=== PATIENT | male | born 1945 | race Caucasian/White ===

== ENCOUNTER → 2016-06-20 | Outpatient (CLI) | payer MEDICARE, OTHER ==
[2016-06-20 10:02] LABS: CH 31.7; CHCM 34.8; HCT 41.3 % (39.0-53.0); HDW 3.06; HGB 13.8 gm/dL (13.0-17.5); MCH 30.5 pg (25.0-35.0); MCHC 33.4 g/dL (31.0-37.0); MCV 91.5 fL (80.0-100.0); Mean Platelet Volume 6.4; RBC 4.52 m/uL (4.30-5.90); RDW 14.2 % (11.5-15.5); WBC 6.8 k/uL (3.8-10.6)
--- NOTE | 2016-06-20 10:08 | XR ---
EXAMINATION TYPE: XR chest 2V DATE OF EXAM: 06/20/2016 9:51 AM COMPARISON: 12/31/2013 TECHNIQUE: PA and lateral views submitted. HISTORY: Chest pain FINDINGS: The lungs are clear and there is no pneumothorax, pleural effusion, or focal pneumonia. Biapical pl eural thickening. Heart size is stable. No overt failure. Hypertrophic change of the spine. IMPRESSION: 1. No acute process.
[2016-06-20 10:17] LABS: ALT 19 U/L (21-72); AST 19 U/L (17-59); Alkaline Phosphatase 98 U/L (38-126); Anion Gap 14 mmol/L; Blood Urea Nitrogen 14 mg/dL (9-20); Calcium 9.3 mg/dL (8.4-10.2); Carbon Dioxide 22 mmol/L (22-30); Chloride 105 mmol/L (98-107); Glucose 103 mg/dL (74-99); Non-African American GFR(MDRD) >60 (>60 ml/min/1.73 sqM); Potassium 5.1 mmol/L (3.5-5.1); Sodium 141 mmol/L (137-145); Total Bilirubin 0.9 mg/dL (0.2-1.3); Total Protein 7.4 g/dL (6.3-8.2)
== END | disposition home or self-care (01) ==
LOC: LABWHC1 09:23
PROVIDERS: ATTEND Internal Medicine
DX: J44.9 Chronic obstructive pulmonary disease, unspecified (principal); C61 Malignant neoplasm of prostate; K21.0 Gastro-esophageal reflux disease with esophagitis
CPT/HCPCS: 36415; 71020; 80053; 85027

== ENCOUNTER → 2018-06-18 | Outpatient (CLI) | payer OTHER ==
--- NOTE | 2018-06-18 08:56 | US ---
EXAMINATION TYPE: US duplex aorta DATE OF EXAM: 06/18/2018 COMPARISON: NONE CLINICAL HISTORY: Z13.6 Screening for AAA Z72.0 Tobacco use. EXAM MEASUREMENTS: Abdominal Aorta: Proximal: 2.5cm by 2.5 cm. Mid: 1.7cm by 1.8 cm transversely Distal: 2.0 by 2.1 cm transversely Bifurcation: 1.2cm 1.2cm IMPRESSION: Some ectasia to the abdominal aorta without greater than 3 cm aneurysmal change identifie d.
== END | disposition home or self-care (01) ==
LOC: RADUSWWP 07:21
DX: Z13.6 Encounter for screening for cardiovascular disorders (principal); I77.811 Abdominal aortic ectasia; Z72.0 Tobacco use
CPT/HCPCS: 93979

== ENCOUNTER → 2019-11-11 | Outpatient (CLI) | payer OTHER ==
--- NOTE | 2019-11-11 14:36 | CONS ---
CONSULTATION DATE OF SERVICE: 11/11/2019 A 74-year-old gentleman who has been evaluated in the Sleep Center for possible obstructive sleep apnea-hypopnea syndrome and also significant movements of the legs and arms during the night. HISTORY OF PRESENT ILLNESS/SLEEP-WAKE EVALUATION: Patient's usual sleep schedule from 10 p.m. to 5:36 am. He does have problem with falling asleep, although no TV in bedroom. He usually sleeps on the side position. According to his , he has severe slow snoring and witnessed episodes of stopped breathing during sleep. Also patient has positive history of sleep talking, restless movements at night, banging foot, restless arms. He wakes up from sleep several times, which is various according to patient, with a dry mouth, panic attack, sweating and nocturia up to 2 times. In the morning, patient wakes up tired, has difficulties to pay attention, worry about his sleep, has problem with concentration, irritability, depression and anxiety. No history of cataplexy. During the day, patient usually does not take naps. [place] Sleepiness Scale is 1. PAST MEDICAL HISTORY: Positive for COPD, hypertension, hyperlipidemia, kidney CA, prostate CA, PTSD. PAST SURGICAL HISTORY: Right nephrectomy for CA and surgery on the prostate for CA, prostatectomy. MEDICATIONS: Prevacid, sertraline, lisinopril, Simvastatin, omeprazole, oxybutynin, sildenafil, melatonin. SOCIAL HISTORY: Positive for smoking for about 50 years, quit in 2012. Alcohol consumption occasional. PHYSICAL EXAM: gentleman without distress. BP 95/62, HR 76, RR 16, height 5, 7, weight 189, BMI 29.6, temperature 98.5, oxygen saturation at room air 98%. OROPHARYNX: Short distance between soft palate and posterior pharyngeal wall. NECK: 15 inches in circumference. LUNGS: Clear to percussion and to auscultation. Good air exchange. No wheezing or rhonchi. HEART: S1, S2 regular. No murmurs, gallops, or rubs. ABDOMEN: Soft and nontender. Bowel sounds are present. No organomegaly appreciated. EXTREMITIES: No clubbing or cyanosis. PROTOTYPE CARPENTER: Awake, alert, and oriented X3. Cranial nerves 2 to 7 intact. There is no fasciculation or atrophy. noted. No focal deficits observed. IMPRESSION: 1. Snoring, witnessed episodes of stopped breathing during the sleep, awakenings from sleep with nocturia, obstructive sleep apnea-hypopnea syndrome. 2. History of sleep talking. 3. History of movements of extremities during the night, possibly periodic limb movements. 4. History of movements of arms, possibly out of limb movements. Rule out REM sleep behavioral disorder. 5. History of PTSD. 6. Chronic obstructive pulmonary disease. 7. Hypertension. 8. Hyperlipidemia. 9. History of right kidney CA, status post right nephrectomy. 10.History of prostate carcinoma, status post prostatectomy. PLAN: 1. Polysomnography for evaluation of patient's breathing during sleep. 2. CPAP/BiPAP titration if sleep study confirms obstructive sleep apnea-hypopnea syndrome. 3. Preferable position during sleep on the side. 4. No driving if patient feels any sleepiness. 5. I will see patient for follow up visit to explain results of testing and following plan. Thank you very much for referring this patient for consultation. Sincerely, Shashi Bravo MD, PhD, FAASM Diplomat of [employer] State Archivist of [facility] [place] MMODL / VAIBHAVN: [id number] /
== END | disposition home or self-care (01) ==
LOC: SLEEP 10:56
PROVIDERS: ATTEND Internal Medicine
DX: G47.33 Obstructive sleep apnea (adult) (pediatric) (principal); J44.9 Chronic obstructive pulmonary disease, unspecified; I10 Essential (primary) hypertension; E78.5 Hyperlipidemia, unspecified; Z86.59 Personal history of other mental and behavioral disorders; Z85.528 Personal history of other malignant neoplasm of kidney; Z85.46 Personal history of malignant neoplasm of prostate; Z90.5 Acquired absence of kidney; Z90.79 Acquired absence of other genital organ(s); Z87.891 Personal history of nicotine dependence; Z79.899 Other long term (current) drug therapy
CPT/HCPCS: 99211

== ENCOUNTER → 2020-02-10 | Outpatient (CLI) | payer OTHER ==
--- NOTE | 2020-02-10 16:11 | SFUN ---
SLEEP CENTER FOLLOW UP NOTE DATE OF SERVICE: 02/10/2020 74-year-old gentleman has been followed in Sleep Center to discuss results of the sleep study and following plan. I discussed results of sleep study with the patient in detail. Diagnostic polysomnogram did not show significant respiratory abnormalities during sleep. Total apnea-hypopnea index was 3.4 per hour, which by today's criteria is normal. In REM sleep it is high as 12.9, but then it is not considered to be indication for treatment with CPAP at the present time. Lowest oxygen level was 88.5%, which is acceptable. At the same time, significant amount of leg movements have been documented in extremely high range, 101 times per hour. [place] Sleepiness Scale today is 2. Medications at present: 2 mg once a day, and 200 mg once a day. The patient does not know dosage of other medications lisinopril, melatonin, simvastatin, omeprazole, Prevacid, oxybutynin, sildenafil. PHYSICAL EXAM: Patient in no distress. BP 112/65, HR 68, RR 15, height 5 feet 7 inches, weight 190, BMI 29.7, temperature 98.2, oxygen saturation at room air 96%. Oropharynx: Short distance between soft palate and posterior pharyngeal wall. LUNGS: Clear to percussion and to auscultation. Good air exchange. No wheezing or rhonchi. NECK: Supple, no JVD. Thyroid is not palpable. HEART: S1, S2 regular. No murmurs, gallops, or rubs. ABDOMEN: Soft and nontender. Bowel sounds are present. No organomegaly appreciated. EXTREMITIES: No clubbing or cyanosis. ADULT PSYCHIATRIST: Awake, alert, and oriented X3. Cranial nerves 2 to 7 intact. There is no fasciculation or atrophy. noted. No focal deficits observed. IMPRESSION: 1. No significant respiratory abnormalities by results of polysomnogram. 2. Extremely severe periodic limb movements. 3. History of PTSD. 4. Chronic obstructive pulmonary disease. 5. Hypertension. 6. Hyperlipidemia. 7. History of right kidney CA, status post right nephrectomy. 8. History of prostate carcinoma, status post prostatectomy. PLAN: 1. I will start the patient with Mirapex 0.125 mg 1-2 tablets at bedtime for treatment of periodic limb movements. 2. The patient to sleep on the side position. 3. Watching weight. 4. Sleep hygiene with regular time for at least 7.5 to 8 hours. 5. Please check iron profile, including ferritin level. Low level of iron may increase risk for periodic limb movements. 6. No driving if feeling sleepiness. Thank you very much for allowing me to participate in management of your patient. Sincerely, Shashi Bravo MD, PhD, FAASM Diplomat of [employer] Production Machine Operator of [facility] [place] MMODL / IJN: [id number] /
== END | disposition home or self-care (01) ==
LOC: SLEEP 11:11
PROVIDERS: ATTEND Internal Medicine
DX: G47.61 Periodic limb movement disorder (principal); E78.5 Hyperlipidemia, unspecified; I10 Essential (primary) hypertension; Z85.46 Personal history of malignant neoplasm of prostate; Z85.520 Personal history of malignant carcinoid tumor of kidney; Z90.5 Acquired absence of kidney; Z90.79 Acquired absence of other genital organ(s)

== ENCOUNTER → 2020-07-11 | Outpatient (CLI) | payer OTHER, MEDICARE ==
--- NOTE | 2020-07-11 16:34 | XR ---
EXAMINATION TYPE: XR lumbar spine 2 or 3V DATE OF EXAM: 07/11/2020 CLINICAL HISTORY: Low back pain with leg weakness. TECHNIQUE: Frontal and lateral images of the lumbar spine are obtained. COMPARISON: None FINDINGS: There are 5 lumbar type vertebral bodies identified. The lumbar spine shows satisfactory alignment without evidence of acute fracture or dislocation. Vertebral body heights and disk space he ights are within normal limits. Mild multilevel anterior and lateral spurring. Facet arthropathy lowe r lumbar levels. Numerous overlying surgical clips along with mild to moderate vascular calcification overlying abdominal aorta. IMPRESSION: As above.
== END | disposition home or self-care (01) ==
LOC: RADXRMAIN 16:04
PROVIDERS: ATTEND Internal Medicine
DX: M46.06 Spinal enthesopathy, lumbar region (principal)
CPT/HCPCS: 72100

== ENCOUNTER → 2020-07-18 | Outpatient (CLI) | payer MEDICARE ==
--- NOTE | 2020-07-19 09:50 | ECHOF ---
Referral Reason:I34.0 Nonrheumatic mitral (valve) insufficiency MEASUREMENTS -------- HEIGHT: 180.3 cm WEIGHT: 79.4 kg BP: RVIDd: 2.8 cm (< 3.3) IVSd: 1.0 cm (0.6 - 1.1) LVIDd: 5.6 cm (3.9 - 5.3) LVPWd: 0.9 cm (0.6 - 1.1) IVSs: 1.9 cm LVIDs: 3.0 cm LVPWs: 1.8 cm LAESV Index (A-L): 18.17 ml/m Ao Diam: 3.4 cm (2.0 - 3.7) AV Cusp: 2.6 cm (1.5 - 2.6) LA Diam: 3.6 cm (2.7 - 3.8) MV EXCURSION: 17.007 mm (> 18.000) MV EF SLOPE: 118 mm/s (70 - 150) EPSS: 0.9 cm MV E Yony: 0.92 m/s MV DecT: 192 ms MV A Yony: 0.72 m/s MV E/A Ratio: 1.27 RAP: 5.00 mmHg RVSP: 28.63 mmHg FINDINGS -------- This was a technically good study. The left ventricular size is normal. Left ventricular wall thickness is normal. Overall left vent ricular systolic function is normal with, an EF between 55 - 60 %. The diastolic filling pattern is normal for the age of the patient 12.18. The right ventricle is normal in size. The left atrial size is normal. Normal LA size by volume 22+/-6 ml/m2. The right atrial size is normal. Interatrial and interventricular septum intact. The aortic valve is trileaflet and appears structurally normal. The mitral valve is normal. There is trace mitral regurgitation. The tricuspid valve appears structurally normal. Trace tricuspid regurgitation present. Right lon tricular systolic pressure is normal at < 35 mmHg. There is no pulmonic regurgitation present. The aortic root size is normal. Normal inferior vena cava with normal inspiratory collapse consistent with estimated right atrial pre ssure of 5 mmHg. There is no pericardial effusion. CONCLUSIONS -------- 1. The left ventricular size is normal. 2. Left ventricular wall thickness is normal. 3. Overall left ventricular systolic function is normal with, an EF between 55 - 60 %. 4. The diastolic filling pattern is normal for the age of the patient 12.18 5. There is trace mitral regurgitation. 6. Trace tricuspid regurgitation present. 7. There is no pericardial effusion. ANIMAL NURSERY WORKER: Emmy Cuevas RDCS
== END | disposition home or self-care (01) ==
LOC: RADECHMAIN 14:43
PROVIDERS: ATTEND Internal Medicine
DX: I08.1 Rheumatic disorders of both mitral and tricuspid valves (principal)
CPT/HCPCS: 93306

== ENCOUNTER → 2022-02-22 | Outpatient (CLI) | payer OTHER ==
[2022-02-22 23:03] LABS: HCT 32.9 % (39.6-50.0); HGB 10.7 g/dL (13.0-17.0); MCH 30.6 pg (27.0-32.0); MCHC 32.5 g/dL (32.0-37.0); Mean Platelet Volume 9.3 fL (9.5-12.2); NRBC Per 100 WBC 0 /100 WBCS (0.0-0.0); Platelet Count 163 X 10*3/uL (140-440); RDW 14.2 % (11.5-14.5); WBC 5.75 X 10*3/uL (4.50-10.00)
[2022-02-23 11:36] LABS: African American GFR (CKD) 50.4 (60.0-200.0); Anion Gap 10.5 mmol/L (10.00-18.00); Blood Urea Nitrogen 18.9 mg/dL (9.0-27.0); Carbon Dioxide 21.5 mmol/L (20.0-27.5); Non-African American GFR(CKD) 43.5 (60.0-200.0); Potassium 4.2 mmol/L (3.5-5.5)
== END | disposition home or self-care (01) ==
LOC: LABPAT 16:16
PROVIDERS: ATTEND Internal Medicine
DX: Z01.812 Encounter for preprocedural laboratory examination (principal); I25.10 Atherosclerotic heart disease of native coronary artery without angina pectoris
CPT/HCPCS: 80051; 82565; 84520; 85027

== ENCOUNTER 2022-02-26 07:12 | Day surgery (SDC) | payer MEDICARE, OTHER ==
[~2022-02-26 07:12] MED LIST: ALPRAZolam 0.25 MG TAB PO PRN; ALPRAZolam 0.5 MG TAB PO PRN; ASPIRIN 325 MG TAB PO ONE; ATORVASTATIN 80 MG TAB PO ONE; HEPARIN SODIUM,PORCINE 10,000 UNIT in SODIUM CHLORIDE 0.9% 1,000 ML IRRIGATION PRN; HEPARIN SODIUM,PORCINE 2,500 UNIT in SODIUM CHLORIDE 0.9% 250 ML IRRIGATION PRN; NITROGLYCERIN SL TABS 0.4 MG TAB SUBLINGUAL PRN; SODIUM CHLORIDE 0.9% 1,000 ML in EMPTY BAG 1 BAG IV SCH
[2022-02-26] MEDS ORDERED: SODIUM CHLORIDE 0.9% 1,000 ML IV ONE (07:28)
[2022-02-26 08:19] VITALS: RESP 16; TEMP 97.9
[2022-02-26] MEDS ORDERED: VERAPAMIL 2.5 MG/ML 2 ML AMP ONE (10:13)
[2022-02-26] MEDS ORDERED: fentaNYL (PF) 50 MCG/ML 2 ML AMP ONE (10:15)
[2022-02-26] MEDS ORDERED: HEPARIN SODIUM 1,000 UN/ML (10ML VL) ONE (10:16)
[2022-02-26] MEDS ORDERED: fentaNYL (PF) 50 MCG/ML 2 ML AMP IV ONE (10:24)
[2022-02-26] MEDS ORDERED: LIDOCAINE 1% INJ 10MG/ML (30 ML VIAL-PF) SQ ONE ×2 (10:24→10:31)
[2022-02-26] MEDS ORDERED: MIDAZOLAM 2 MG/2 ML VIAL IV ONE (10:24)
[2022-02-26] MEDS ORDERED: VERAPAMIL SYRINGE (5 MG/10 ML) INTRAARTER ONE (10:33)
[2022-02-26] MEDS: HEPARIN SODIUM 1,000 UN/ML (10ML VL) IV ONE ×3 (10:35→10:59)
[2022-02-26] MEDS ORDERED: TICAGRELOR 90 MG TAB PO ONE (10:43)
[2022-02-26] MEDS ORDERED: TICAGRELOR 90 MG TAB ONE (10:43)
[2022-02-26] MEDS ORDERED: IOPAMIDOL-370 100ML BTL INJ ONE ×2 (11:13)
[2022-02-26 15:51] VITALS: BP 137/79; PULSE 56
[2022-02-26] MEDS ORDERED: ATROPINE SULFATE 0.1 MG/ML 10ML SYRINGE IV PRN (17:22)
[2022-02-26] MEDS ORDERED: MAG HYDROX/AL HYDROX/SIMETH 30 ML CUP PO PRN (17:22)
[2022-02-26] MEDS ORDERED: NITROGLYCERIN SL TABS 0.4 MG TAB SUBLINGUAL PRN (17:22)
[2022-02-26] MEDS ORDERED: RX INFO: IV CONTRAST WAS GIVEN 1 EACH MISC MISCELLANE PRN (17:22)
[2022-02-26] MEDS ORDERED: ZOLPIDEM 5 MG TAB PO PRN (17:22)
[2022-02-26] MEDS ORDERED: SODIUM CHLORIDE 0.9% 1,000 ML in EMPTY BAG 1 BAG IV SCH (17:30)
--- NOTE | 2022-02-26 17:39 | P.PRCINT ---
Percutaneous Coronary Int. - Percutaneous Coronary Intervention Percutaneous Coronary Intervention: PROCEDURES PERFORMED: Left heart catheterization, bilateral coronary angiography, PCI mid to distal OM1 with 2.25 x 38mm Xience RADHA, post dilated proximally with a 3.0 NC balloon INDICATION: CAD, abnormal CT calcium score, angina class 3, CKD HISTORY: Patient is pleasant 77-year-old male with history of coronary artery calcifications who has been experiencing worsened chest pain with exertion worse over the last 2 months concerning for unstable angina. He additionally had CT calcium score > 2000. He did not have much change with metoprolol. Therefore [facility] was recommended with possible PCI. CONSENT:I have discussed the risks, benefits and alternative therapies for the above-mentioned procedure and for both sedation/analgesia as well as necessary blood product administration, if indicated, as they pertain to this patient. The patient has indicated understanding and acceptance of the risks and procedures discussed. PROCEDURE: After the risks, benefits and alternatives of the above mentioned procedure explained in detail with the patient, informed consent was obtained. Patient was taken to the catheterization lab and prepped and draped in usual fashion. 1% lidocaine was used to anesthetize the right radial artery. A 6- [place] sheath was placed in the right radial artery using modified Seldinger technique. Left coronary angiography was performed with a 5-[place] FL 3.5 catheter and right coronary angiography was performed with a 5-[place] JR5 catheter in various views. The decision was made to perform PCI of the OM1 branch. A 6Fr CLS 3.0 guide catheter was used to engage the left main. A 0.014 BMW wire was placed in the distal OM1. A second 0.014 whisper wire was used as a yeimi wire. Predilation was performed with a 2.0 then 2.25 balloon and a 3.0NC balloon proximally. Next a 2.25 x 38mm Xience RADHA was placed in the mid to distal OM1. The proximal portion was post dilated with a 3.0 NC balloon. The wire was pulled and final angiograms were performed. Preintervention there was 95% stenosis and JUDI 3 flow and post intervention there was 0% stenosis and JUDI 3 flow. The right radial sheath was removed and a TR band was placed with hemostasis achieved. The patient tolerated the procedure well. Patient was transported back to the post catheterization holding area in stable condition. Conscious Sedation: Patient was monitored under the direct supervision of vision of myself for conscious sedation using Versed and fentanyl for a total duration of 43 minutes HEMODYNAMICS: Aorta: 122/71 LV: 102/5, LVEDP 16mmHg SELECTIVE CORONARY ARTERIOGRAPHY: LEFT MAIN: The left main is a large caliber vessel which bifurcates into the LAD and circumflex. There is no significant stenosis. LEFT ANTERIOR DESCENDING CORONARY ARTERY: LAD is a large caliber vessel which wraps around to the apex. There are mild luminal irregularities and diffuse 20- 30% stenosis throughout the entire LAD. There are late collaterals to what appears to be a small caliber acute marginal branch from the RCA. LEFT CIRCUMFLEX CORONARY ARTERY: Left circumflex is a moderate to large caliber vessel with diffuse proximal 30% stenosis and a tandem 70% then 95% mid to distal OM1 stenosis and a distal circumflex 50-60% stenosis to a small caliber OM2. RIGHT CORONARY ARTERY: The right coronary artery is a large caliber vessel which gives off a PDA and PLV branch and is the dominant vessel. There are mild luminal irregularities. The proximal PDA has a 50-60% stenosis. There is a small caliber acute marginal branch with 80% stenosis. FINAL IMPRESSION: 1. CAD as described above including diffuse mild 20-30% LAD stenosis, PDA 50- 60% stenosis, circumflex 50-60% stenosis, OM1 tandem 70% and 95% stenoses. 2. S/p PCI mid to distal OM1 with 2.25 x 38mm Xience RADHA, post dilated pro ximally with a 3.0 NC balloon 3. High normal left sided filling pressures PLAN: 1. Aggressive risk factor modification per most recent ACC/AHA guidelines. 2. Continue dual antiplatelets for 12 months with aspirin and Brillinta 3. If has recurrent angina may consider functional assessment of circumflex/OM2 or PDA with iFR or stress testing.
[2022-02-26] MEDS ORDERED: TICAGRELOR 90 MG TAB PO SCH (21:00)
[2022-02-27] MEDS ORDERED: TICAGRELOR 90 MG TAB PO SCH (09:00)
[2022-02-27] MEDS ORDERED: ASPIRIN 81 MG PO SCH (09:00)
== END 2022-02-26 15:33 | disposition home or self-care (01) ==
LOC: CATHCVL 07:12
PROVIDERS: ATTEND Internal Medicine
DX: I25.110 Atherosclerotic heart disease of native coronary artery with unstable angina pectoris (principal); N18.30 Chronic kidney disease, stage 3 unspecified; Q25.0 Patent ductus arteriosus; E78.5 Hyperlipidemia, unspecified; Z98.61 Coronary angioplasty status; Z87.891 Personal history of nicotine dependence
CPT/HCPCS: 93458; C9600; C1769 ×3; C1894; C1725 ×3; C1874; J2250; J2001; J3010; J1644; Q9967

== ENCOUNTER → 2022-03-04 | Outpatient (CLI) | payer OTHER ==
--- NOTE | 2022-03-04 13:07 | US ---
EXAMINATION TYPE: US carotid duplex BILAT DATE OF EXAM: 03/04/2022 COMPARISON: NONE CLINICAL HISTORY: R93.1 abn findings. TECHNIQUE: Carotid duplex ultrasound examination. Indirect Doppler criteria was utilized. FINDINGS: EXAM MEASUREMENTS: RIGHT: Peak Systolic Velocity (PSV) cm/sec ----- Right CCA: 94.4 ----- Right ICA: 95.8 ----- Right ECA: 77.5 ICA/CCA ratio: 1.01 RIGHT: End Diastole cm/sec ----- Right CCA: 21.7 ----- Right ICA: 29.2 ----- Right ECA: 12.2 LEFT: Peak Systolic Velocity (PSV) cm/sec ----- Left CCA: 89.0 ----- Left ICA: 98.5 ----- Left ECA: 76.8 ICA/CCA ratio: 1.11 LEFT: End Diastole cm/sec ----- Left CCA: 24.5 ----- Left ICA: 27.2 ----- Left ECA: 4.1 VERTEBRALS (direction of flow): Right Vertebral: Antegrade Left Vertebral: Antegrade Rhythm: Normal CHIEF MATE NOTES: No significant stenosis seen. Bilateral plaque noted without elevated velocities. Grayscale images show moderate to severe plaque at the right carotid bulb. Less prominent plaque left carotid bulb. Velocity measurements and ratios remain within normal limits in the visualized portion of both internal carotid arteries. IMPRESSION: No hemodynamically significant stenosis identified in either internal carotid artery. Criteria for Assigning % of Stenosis / Diameter reduction (Estimation based on the indirect measurements of the internal carotid artery velocities (ICA PSV). 1. Normal (no stenosis)=ICA PSV < 125 cm/s: ratio < 2.0: ICA EDV<40 cm/s. 2. Less than 50% stenosis=ICA PSV < 125 cm/s: ratio < 2.0: ICA EDV<40 cm/s. 3. 50 to 69% stenosis=ICA PSV of 125 to 230 cm/s: ration 2.0 ? 4.0: ICA EDV 40-100 cm/s. 4. Greater than 70% stenosis to near occlusion= ICA PSV > 230 cm/s: ratio > 4.0: ICA EDV > 100 cm/s. 5. Near occlusion= ICA PSV velocities may be low or undetectable: variable ratio and ICA EDV. 6. Total occlusion=unable to detect flow.
== END | disposition home or self-care (01) ==
LOC: RADUSWWP 12:12
PROVIDERS: ATTEND Internal Medicine Clinical Cardiac Electrophysiology
DX: I25.10 Atherosclerotic heart disease of native coronary artery without angina pectoris (principal); R93.1 Abnormal findings on diagnostic imaging of heart and coronary circulation
CPT/HCPCS: 93880

== ENCOUNTER → 2022-09-17 | Outpatient (CLI) | payer OTHER | END | disposition home or self-care (01) | LOC: RADUSWWP 07:10 | DX: Z53.9 Procedure and treatment not carried out, unspecified reason (principal) ==

== ENCOUNTER → 2022-10-03 | Outpatient (CLI) | payer OTHER ==
--- NOTE | 2022-10-03 08:44 | US ---
EXAMINATION TYPE: US Aorta Screening DATE OF EXAM: 10/03/2022 COMPARISON: US CLINICAL INDICATION: Male, 77 years old with history of Z13.89 ENCOUNTER FOR SCREENING FOR OTHER DISO RDER; AAA screening TECHNIQUE: Multiple sonographic images of the abdominal aorta are obtained. FINDINGS: EXAM MEASUREMENTS: Abdominal Aorta: Proximal: 1.8 x 2.0 cm Mid: 1.3 x 1.5 cm Distal: 2.3 x 2.5 cm Bifurcation: SOFY: 1.2 x 1.2 cm SHAYY: 1.0 x 1.3 cm WEEDER THINNER NOTES: Some ectasia to the distal abdominal aorta without greater than 3 cm aneurysmal change IMPRESSION: Ectatic and atheromatous change without evidence for aneurysm.
== END | disposition home or self-care (01) ==
LOC: RADUSWWP 08:07
PROVIDERS: ATTEND Family Medicine
DX: Z13.6 Encounter for screening for cardiovascular disorders (principal); Z13.89 Encounter for screening for other disorder; I70.0 Atherosclerosis of aorta
CPT/HCPCS: 76706

== ENCOUNTER → 2022-12-17 | Outpatient (CLI) | payer MEDICARE ==
--- NOTE | 2022-12-17 13:38 | XR ---
EXAMINATION TYPE: XR tibia fibula RT DATE OF EXAM: 12/17/2022 12:30 PM INDICATION: Patient age:Male; 77 years old; Reason for study: M79.89 OTHER SPECIFIED SOFT TISSUE DISORDERS; PHH. COMPARISON: None TECHNIQUE: The right tibia/fibula was examined in AP and lateral projections. FINDINGS: No evidence of any acute osseous pathology, joint dislocation, or soft tissue swelling is n oted. No lytic or sclerotic lesion. No periosteal reaction. No radiopaque foreign body. IMPRESSION: No evidence of acute fracture.
== END | disposition home or self-care (01) ==
LOC: RADXRMAIN 12:07
PROVIDERS: ATTEND Nurse Practitioner Family
DX: M79.89 Other specified soft tissue disorders (principal)

== ENCOUNTER → 2022-12-17 | Outpatient (CLI) | payer MEDICARE ==
--- NOTE | 2022-12-17 13:29 | US ---
EXAMINATION TYPE: US venous doppler duplex LE RT DATE OF EXAM: 12/17/2022 12:54 PM COMPARISON: NONE CLINICAL INDICATION: Male, 77 years old with history of M79.89 SWELLING RIGHT LOWER EXTREMITY; SIDE PERFORMED: Right TECHNIQUE: The lower extremity deep venous system is examined utilizing real time linear array sonog brendon with graded compression, doppler sonography and color-flow sonography. VESSELS IMAGED: Common Femoral Vein Deep Femoral Vein Greater Saphenous Vein * Femoral Vein Popliteal Vein Small Saphenous Vein * Proximal Calf Veins (* superficial vessels) Right Leg: Negative for DVT Fluid visualized right upper calf medial area of lump 4.2 x 1.2 x 2.6 cm. IMPRESSION: Grayscale, color doppler, spectral doppler imaging performed of the deep veins of the lo wer extremities. There is normal flow, compressibility, vascular waveforms.
== END | disposition home or self-care (01) ==
LOC: RADUSWWP 12:11
PROVIDERS: ATTEND Internal Medicine
DX: M79.89 Other specified soft tissue disorders (principal)

== ENCOUNTER → 2023-03-31 | Outpatient (CLI) | payer MEDICARE ==
[2023-03-31 11:08] LABS: Blood Urea Nitrogen 16.6 mg/dL (9.0-27.0); Carbon Dioxide 25.1 mmol/L (21.6-31.8); Chloride 106 mmol/L (96-109); Potassium 4.7 mmol/L (3.5-5.5); Sodium 143 mmol/L (135-145)
[2023-03-31 12:19] LABS: Basophils # (A) 0.01 X 10*3/uL (0.00-0.10); Basophils % (A) 0.3 %; Eosinophils # (A) 0.14 X 10*3/uL (0.04-0.35); Eosinophils % (A) 3.8 %; HCT 32.2 % (39.6-50.0); HGB 10.7 g/dL (13.0-17.0); Immature Grans, Automated 0 %; Immature Platelet Fraction 8.5 % (1.1-6.1); Lymphocytes # (A) 0.97 X 10*3/uL (0.90-5.00); Lymphocytes % (A) 26.4 %; MCH 32.5 pg (27.0-32.0); MCHC 33.2 g/dL (32.0-37.0); MCV 97.9 FL (80.0-97.0); Mean Platelet Volume 11.6 FL (9.5-12.2); Monocytes # (A) 0.19 X 10*3/uL (0.20-1.00); Monocytes % (A) 5.2 %; NRBC Per 100 WBC 0 X 10*3/uL (0.00-0.01); Neutrophils # (A) 2.37 X 10*3/uL (1.80-7.70); Neutrophils % (A) 64.3 %; Platelet Count 71 X 10*3/uL (140-440); RBC 3.29 X 10*6/uL (4.40-5.60); RBC Morphology Normal (Normal); RDW 14.3 % (11.5-14.5); WBC 3.68 X 10*3/uL (4.50-10.00)
== END | disposition home or self-care (01) ==
LOC: LABPAT 07:18
PROVIDERS: ATTEND Internal Medicine
DX: Z01.812 Encounter for preprocedural laboratory examination (principal); I25.10 Atherosclerotic heart disease of native coronary artery without angina pectoris
CPT/HCPCS: 80051; 82565; 84520; 85025

== ENCOUNTER 2023-04-03 07:55 | Day surgery (SDC) | payer MEDICARE, OTHER ==
[~2023-04-03 07:55] MED LIST changes: -ASPIRIN 325 MG TAB PO ONE; +ASPIRIN 325 MG TAB PO STA; -ATORVASTATIN 80 MG TAB PO ONE; +HEPARIN SODIUM,PORCINE (1 ML) 2,500 UNIT in SODIUM CHLORIDE 0.9% 250 ML IRRIGATION PRN; -HEPARIN SODIUM,PORCINE 2,500 UNIT in SODIUM CHLORIDE 0.9% 250 ML IRRIGATION PRN
[2023-04-03] MEDS ORDERED: EMPTY BAG 1 BAG with SODIUM CHLORIDE 0.9% 1,000 ML IV ONE (08:00)
[2023-04-03] MEDS ORDERED: SODIUM CHLORIDE 0.9% 1,000 ML IV ONE (08:02)
[2023-04-03 08:27] LABS: Basophils % (A) 0 %; Eosinophils # (A) 0.1 k/uL (0-0.7); Eosinophils % (A) 3 %; HCT 30.9 % (39.0-53.0); HGB 10.4 gm/dL (13.0-17.5); Lymphocytes # (A) 1.1 k/uL (1.0-4.8); Lymphocytes % (A) 30 %; MCH 32.5 pg (25.0-35.0); MCHC 33.7 g/dL (31.0-37.0); MCV 96.6 fL (80.0-100.0); Mean Platelet Volume 9.6; Monocytes # (A) 0.2 k/uL (0-1.0); Monocytes % (A) 5 %; Neutrophils # (A) 2.3 k/uL (1.3-7.7); Neutrophils % (A) 61 %; RBC 3.19 m/uL (4.30-5.90); WBC 3.7 k/uL (3.8-10.6)
[2023-04-03 08:38] LABS: Platelet Count 70 k/uL (150-450)
[2023-04-03 08:46] VITALS: RESP 16; TEMP 97
[2023-04-03] MEDS ORDERED: VERAPAMIL 2.5 MG/ML 2 ML AMP ONE (10:38)
[2023-04-03] MEDS ORDERED: fentaNYL (PF) 50 MCG/ML 2 ML AMP ONE (10:48)
[2023-04-03] MEDS ORDERED: HEPARIN SODIUM 1,000 UN/ML (10ML VL) ONE (10:48)
[2023-04-03] MEDS: fentaNYL (PF) 50 MCG/ML 2 ML AMP IVP ONE ×2 (10:57→11:04)
[2023-04-03] MEDS ORDERED: MIDAZOLAM 2 MG/2 ML VIAL IVP ONE ×2 (10:57→11:05)
[2023-04-03] MEDS ORDERED: LIDOCAINE 1% INJ 10MG/ML (20 ML MDV) SQ ONE (11:00)
[2023-04-03] MEDS ORDERED: VERAPAMIL SYRINGE (5 MG/10 ML) INTRAARTER ONE (11:02)
[2023-04-03] MEDS ORDERED: HEPARIN SODIUM 1,000 UN/ML (10ML VL) IVP ONE (11:05)
[2023-04-03] MEDS ORDERED: IOPAMIDOL-370 100ML BTL INJ ONE (11:19)
[2023-04-03 14:45] VITALS: BP 99/55; PULSE 55
--- NOTE | 2023-04-03 15:50 | P.CARDCATH ---
Description of Procedure: PROCEDURES PERFORMED: Left heart catheterization, bilateral coronary angiography INDICATION: CAD CONSENT:I have discussed the risks, benefits and alternative therapies for the above-mentioned procedure and for both sedation/analgesia as well as necessary blood product administration, if indicated, as they pertain to this patient. The patient has indicated understanding and acceptance of the risks and procedures discussed. PROCEDURE: After the risks, benefits and alternatives of the above mentioned procedure explained in detail with the patient, informed consent was obtained. Patient was taken to the catheterization lab and prepped and draped in usual fashion. 1% lidocaine was used to anesthetize the right radial artery. A 6- [place] sheath was placed in the right radial artery using modified Seldinger technique. Left coronary angiography was performed with a 5-[place] FL 3.5 catheter and right coronary angiography was performed with a 5-[place] AR2 catheter in various views. The AR2 catheter was inserted into the LV and pressure measurements were obtained. Anatomy appeared unchanged from prior other than progression of the distal OM1 stenosis and therefore recommended medical therapy. The right radial sheath was removed and a TR band was placed with hemostasis achieved. The patient tolerated the procedure well. Patient was transported back to the post catheterization holding area in stable condition. Conscious Sedation: Patient was monitored under the direct supervision of vision of myself for conscious sedation using Versed and fentanyl for a total duration of 17 minutes HEMODYNAMICS: Aorta: 131/77 LV: 132/10, LVEDP 22 mmHg SELECTIVE CORONARY ARTERIOGRAPHY: LEFT MAIN: The left main is a large caliber vessel which bifurcates into the LAD and circumflex. There are nearly dual ostia. There is no significant stenosis. LEFT ANTERIOR DESCENDING CORONARY ARTERY: LAD is a large caliber vessel which wraps around to the apex. There are mild luminal irregularities and diffuse 20- 30% stenosis throughout the entire LAD. There are late collaterals to what appears to be a small caliber acute marginal branch or PLV from the RCA, similar to 2021. LEFT CIRCUMFLEX CORONARY ARTERY: Left circumflex is a moderate to large caliber vessel with diffuse proximal 30% stenosis, patent OM1 stent with distal 90% stenosis of OM1 just past the stent and a distal circumflex 60-70% stenosis to a small caliber OM2. RIGHT CORONARY ARTERY: The right coronary artery is a large caliber vessel which gives off a PDA and PLV branch and is the dominant vessel. There are mild luminal irregularities. The proximal PDA has a 50% stenosis. There is a small caliber acute marginal branch with 80% stenosis. Likely occluded PLV similar to prior with left to right collaterals. FINAL IMPRESSION: 1. CAD as described above including diffuse mild 20-30% LAD stenosis, PDA 50- 60% stenosis, circumflex 50% stenosis, small caliber OM1 90%, OM2 60-70% stenoses. 2. High left sided filling pressures PLAN: 1. Aggressive risk factor modification per most recent ACC/AHA guidelines. 2. Anatomy appears similar to prior imaging from 2021, except progression of small caliber 1.0-1.5mm OM1 and relatively similar small caliber OM2. Extensive disease and would attempt medical therapy, has not yet started Ranexa. No clear interventional targets with angina likely from smaller caliber CAD. Attempt to uptitrate antianginals.
== END 2023-04-03 15:14 | disposition home or self-care (01) ==
LOC: CATHCVL 07:55
PROVIDERS: ATTEND Internal Medicine
DX: I25.10 Atherosclerotic heart disease of native coronary artery without angina pectoris (principal); I10 Essential (primary) hypertension; E78.5 Hyperlipidemia, unspecified; Z79.899 Other long term (current) drug therapy; Z82.49 Family history of ischemic heart disease and other diseases of the circulatory system; F17.210 Nicotine dependence, cigarettes, uncomplicated; Z79.82 Long term (current) use of aspirin
CPT/HCPCS: 93458; 85025; C1769; C1894; J2250; J2001; J3010; J1644; Q9967

== ENCOUNTER 2023-06-17 06:09 | Day surgery (SDC) | payer OTHER ==
[2023-06-11 17:39] VITALS: BMI 25.2
[2023-06-17] MEDS: LACTATED RINGERS 1,000 ML IV SCH (07:00)
[2023-06-17] MEDS ORDERED: PROPOFOL 10 MG/ML 20 ML VIAL IV ONE (07:05)
[2023-06-17 07:33] VITALS: TEMP 97.7
[2023-06-17] MEDS: IV FLUID CONTINUATION 600 ML IV ONE (07:52)
[2023-06-17 08:01] LABS: Anisocytosis Slight; Basophils % (A) 1 %; Eosinophils # (A) 0.1 k/uL (0-0.7); Eosinophils % (A) 3 %; HCT 27.9 % (39.0-53.0); HGB 9.6 gm/dL (13.0-17.5); Lymphocytes # (A) 0.9 k/uL (1.0-4.8); Lymphocytes % (A) 23 %; MCH 34.3 pg (25.0-35.0); MCHC 34.6 g/dL (31.0-37.0); MCV 99.1 fL (80.0-100.0); Macrocytosis Slight; Mean Platelet Volume 12.1; Monocytes # (A) 0.2 k/uL (0-1.0); Monocytes % (A) 5 %; Neutrophils # (A) 2.6 k/uL (1.3-7.7); Neutrophils % (A) 67 %; Poikilocytosis Slight; RBC 2.82 m/uL (4.30-5.90); RDW 17.2 % (11.5-15.5); Reticulocyte % 2.8 % (0.5-2.0)
[2023-06-17 08:24] LABS: Platelet Count 58 k/uL (150-450)
[2023-06-17 08:38] VITALS: BP 106/55; PULSE 61; RESP 20
--- NOTE | 2023-06-17 09:25 | OP ---
OPERATIVE REPORT DATE OF SERVICE : PROCEDURE PERFORMED: Bone marrow biopsy with aspiration under general and local sedation. PREOPERATIVE DIAGNOSIS: Bicytopenia. POSTOPERATIVE DIAGNOSIS: Bicytopenia. DESCRIPTION OF PROCEDURE: Following administration of general anesthesia, Mr. Zabala was placed in left lateral decubitus position. The right posterior superior iliac spine was palpated followed by palpation of the right posterior iliac crest. This area was sterilized with 3 swabs of Betadine and 3 swabs of alcohol following placement of sterile drapes. The periosteum was then anesthetized with 10 mL of 1% lidocaine. A 0.3 cm incision was then made into the skin and advancement of 4-inch Jamshidi needle into the bone marrow. A total of 16 mL of aspirate was obtained followed by a 1 cm core sample. There was less than 1 mL of blood loss and procedure was tolerated without complications. Samples will be sent for morphology, flow cytometry, FISH, cytogenetics, and NGS testing. We will follow up on the results of the studies in clinic. MMODL / IJN: [id number] / MTDD
== END 2023-06-17 08:53 ==
LOC: OR 06:09
PROVIDERS: ATTEND Internal Medicine
DX: D64.89 Other specified anemias (principal)
CPT/HCPCS: 85025; 85045; 38222; J2704

== ENCOUNTER 2023-08-06 11:02 | Emergency (ER) | payer OTHER ==
--- NOTE | 2023-08-06 11:10 | ED ---
General Adult HPI - General Source: patient, family, RN notes reviewed Mode of arrival: ambulatory Limitations: no limitations <Mini Mckeon - Last Filed: 08/06/23 11:09> - General Source: patient, family, RN notes reviewed, old records reviewed Mode of arrival: ambulatory Limitations: no limitations <Sean Angel - Last Filed: 08/06/23 15:19> - General Stated complaint: Abn Labs Time Seen by Provider: 08/06/23 11:09 - History of Present Illness Initial comments: Quick note: 78-year-old male presented to the ER with a chief complaint of low hemoglobin. Patient sent by Dr. Kwon as he is currently undergoing chemo for myelodysplastic syndrome. Hemoglobin yesterday was 7 per . He has been experiencing lightheadedness. Denies any shortness of breath, chest pain or fevers. (Mini Mckeon) 78-year-old male presents emergency department with chief complaint of anemia. Patient states he was sent in by Dr. Kwon secondary to hemoglobin of 7. Patient states that he finished chemo last Friday in which he has mild dysplastic syndrome. Patient states he has had some increased dizziness and shortness of breath he states he always has the symptoms but they are worse than usual. He denies any chest pain, palpitations, fever chills or any URI symptoms. (Sean Angel) - Related Data Home Medications Medication Instructions Recorded Confirmed Aspirin 81 mg PO QAM 02/25/22 06/11/23 Atorvastatin [Lipitor] 80 mg PO HS 02/25/22 06/11/23 Ezetimibe [Zetia] 10 mg PO QAM 02/25/22 06/11/23 Melatonin 3 mg PO HS 02/25/22 06/11/23 Metoprolol Succinate (ER) [Toprol 25 mg PO QAM 02/25/22 06/11/23 Xl] Omeprazole 40 mg PO BID 02/25/22 06/11/23 Pramipexole [Mirapex] 0.125 mg PO HS 02/25/22 06/11/23 Sertraline [Zoloft] 200 mg PO DAILY 02/25/22 06/11/23 lisinopriL [Zestril] 10 mg PO QAM 02/25/22 06/11/23 traZODone HCL 100 mg PO HS 02/25/22 06/11/23 Cholecalciferol [Vitamin D3 (10 10 mg PO BID 03/31/23 06/11/23 Mcg = 400 Iu)] Clopidogrel Bisulfate [Clopidogrel] 75 mg PO QAM 03/31/23 06/11/23 Prazosin [Minipress] 2 mg PO BID 03/31/23 06/11/23 Allergies Allergy/AdvReac Type Severity Reaction Status Date / Time No Known Allergies Allergy Verified 08/06/23 11:37 Review of Systems ROS Other: All systems not noted in ROS Statement are negative. <Mini Mckeon - Last Filed: 08/06/23 11:09> ROS Other: All systems not noted in ROS Statement are negative. <Sean Angel - Last Filed: 08/06/23 15:19> ROS Statement: Those systems with pertinent positive or pertinent negative responses have been documented in the HPI. Past Medical History Past Medical History: Coronary Artery Disease (CAD), Cancer, Chest Pain / Angina, Hyperlipidemia, Hypertension, Renal Disease Additional Past Medical History / Comment(s): PAROXYSMAL ATRIAL TACHYCARDIA, HX RENAL, PROSTATE AND SKIN CNACER ALL WITH SURGERY History of Any Multi-Drug Resistant Organisms: None Reported Past Surgical History: Heart Catheterization, Heart Catheterization With Stent, Prostate Surgery Additional Past Surgical History / Comment(s): RT NEPHRECTOMY IN 1991, PROSTATECTOMY 2009, SKIN CANCER REMOVED LT ARM, LT HAND FINGERS REATTACHED, COLONOSCOPY, BILAT CATARACTS REMOVED WITH LENS IMPLANTS Past Anesthesia/Blood Transfusion Reactions: No Reported Reaction Date of Last Stent Placement:: 2021 Smoking Status: Former smoker - Past Family History Father Family Medical History: Cancer Mother Family Medical History: Cancer <Mini Mckeon - Last Filed: 08/06/23 11:09> General Exam <Mini Mckeon - Last Filed: 08/06/23 11:09> General appearance: alert, in no apparent distress Head exam: Present: atraumatic, normocephalic, normal inspection Eye exam: Present: normal appearance, PERRL, EOMI. Absent: scleral icterus, conjunctival injection, periorbital swelling ENT exam: Present: normal exam, normal oropharynx, mucous membranes moist Neck exam: Present: normal inspection, full ROM. Absent: tenderness, meningismus, lymphadenopathy Respiratory exam: Present: normal lung sounds bilaterally. Absent: respiratory distress, wheezes, rales, rhonchi, stridor Cardiovascular Exam: Present: regular rate, normal rhythm, normal heart sounds. Absent: systolic murmur, diastolic murmur, rubs, gallop, clicks GI/Abdominal exam: Present: soft, normal bowel sounds. Absent: distended, tenderness, guarding, rebound, rigid Neurological exam: Present: alert Skin exam: Present: warm, dry, intact, normal color. Absent: rash <Sean Angel - Last Filed: 08/06/23 15:19> - General Exam Comments Initial Comments: Visual Physical Exam Vital signs reviewed General: Ill-appearing mildly jaundice Head: Normocephalic, atraumatic Eyes: PERRLA, EOMI ENT: Airway patent Chest: Nonlabored breathing Skin: No visual rash, normal skin tone Neuro: Alert and oriented 3 Musculoskeletal: No gross abnormalities (Mini Mckeon) Course Vital Signs 08/06/23 11:32 Temperature 97.8 F Pulse Rate 82 Respiratory 20 Rate Blood Pressure 112/57 O2 Sat by Pulse 93 L Oximetry Medical Decision Making <Mini Mckeon - Last Filed: 08/06/23 11:09> - Lab Data Result diagrams: 08/06/23 13:20 08/06/23 13:20 <Sean Angel - Last Filed: 08/06/23 15:19> - Medical Decision Making I performed the quick note portion of this chart. Electronically signed by Mini Mckeon PA-C (Mini Mckeon) Was pt. sent in by a medical professional or institution (ERIKA Peterson, ENVIRONMENT COORDINATOR, urgent care, hospital, or group home...) When possible be specific @ -Oncologist Did you speak to anyone other than the patient for history (EMS, parent, family, police, friend...)? What history was obtained from this source @ -No Did you review nursing and triage notes (agree or disagree)? Why? @ -I reviewed and agree with nursing and triage notes Were old charts reviewed (outside hosp., previous admission, EMS record, old EKG, old radiological studies, urgent care reports/EKG's, group home records)? Report findings @ -No old charts were reviewed Differential Diagnosis (chest pain, altered mental status, abdominal pain women, abdominal pain men, vaginal bleeding, weakness, fever, dyspnea, syncope, h eadache, dizziness, GI bleed, back pain, seizure, CVA, palpatations, mental health, musculoskeletal)? @ -, MDS, anemia EKG interpreted by me (3pts min.). @ -None X-rays interpreted by me (1pt min.). @ -None done CT interpreted by me (1pt min.). @ -None done U/S interpreted by me (1pt. min.). @ -None done What testing was considered but not performed or refused? (CT, X-rays, U/S, labs)? Why? @ -None What meds were considered but not given or refused? Why? @ -None Did you discuss the management of the patient with other professionals (professionals i.e. , PA, ENVIRONMENT COORDINATOR, lab, RT, psych nurse, social psychologist, ball truing machine operator, teacher, nuclear medicine officer, family preservation caseworker)? Give summary @ -[Ceci zeng on-call for oncology recommends still transfusing and may be discharged after transfusion not requiring admission for neutropenia as he does not have a fever Was smoking cessation discussed for >3mins.? @ -No Was critical care preformed (if so, how long)? @ -35 minutes Were there social determinants of health that impacted care today? How? (Homelessness, low income, unemployed, alcoholism, drug addiction, tra nsportation, low edu. Level, literacy, decrease access to med. care, care home, rehab)? @ -No Was there de-escalation of care discussed even if they declined (Discuss DNR or withdrawal of care, Hospice)? DNR status @ -No What co-morbidities impacted this encounter? (DM, HTN, Smoking, COPD, CAD, Cancer, CVA, ARF, Chemo, Hep., AIDS, mental health diagnosis, sleep apnea, morbid obesity)? @ -None Was patient admitted / discharged? Hospital course, mention meds given and route, prescriptions, significant lab abnormalities, going to OR and other pertinent info. @ -Discharged patient did receive 1 unit of blood. Patient states he knows about his neutropenia and knows that he needs to return for any fever. I did discuss case with oncology. Patient did have a full set of laboratory studies. Undiagnosed new problem with uncertain prognosis? @ -No Drug Therapy requiring intensive monitoring for toxicity (Heparin, Nitro, Insulin, Cardizem)? @ -No Were any procedures done? @ -No Diagnosis/symptom? @ -Anemia, MDS Acute, or Chronic, or Acute on Chronic? @ -Acute Uncomplicated (without systemic symptoms) or Complicated (systemic symptoms)? @ -Complicated Side effects of treatment? @ -No Exacerbation, Progression, or Severe Exacerbation? @ -No Poses a threat to life or bodily function? How? (Chest pain, [place], [place], pneumonia, PE, COPD, DKA, ARF, appy, cholecystitis, CVA, Diverticulitis, Homicidal, S uicidal, threat to staff... and all critical care pts) @ -Yes anemia (Sean Angel) - Lab Data Lab Results 08/06/23 08/06/23 08/06/23 Range/Units 13:20 13:20 13:20 WBC 1.1 L* (3.8-10.6) k/uL RBC 2.04 L (4.30-5.90) m/uL Hgb 7.2 L D (13.0-17.5) gm/dL Hct 20.1 L (39.0-53.0) % MCV 98.9 (80.0-100.0) fL MCH 35.2 H (25.0-35.0) pg MCHC 35.6 (31.0-37.0) g/dL RDW 18.5 H (11.5-15.5) % Plt Count 33 L (150-450) k/uL MPV 12.0 Neutrophils % (Manual) 17 % Lymphocytes % (Manual) 73 % Monocytes % (Manual) 5 % Eosinophils % (Manual) 5 % Neutrophils # (Manual) 0.19 L* (1.3-7.7) k/uL Lymphocytes # (Manual) 0.80 L (1.0-4.8) k/uL Monocytes # (Manual) 0.06 (0-1.0) k/uL Eosinophils # (Manual) 0.06 (0-0.7) k/uL Nucleated RBCs 0 (0-0) /100 WBC Manual Slide Review Performed Large Platelets Present Polychromasia Present Poikilocytosis Slight Anisocytosis Slight Macrocytosis Slight PT 10.2 (10.0-12.5) sec INR 0.9 (<1.2) APTT 22.3 (22.0-30.0) sec Sodium 137 (137-145) mmol/L Potassium 4.2 (3.5-5.1) mmol/L Chloride 108 H (98-107) mmol/L Carbon Dioxide 24 (22-30) mmol/L Anion Gap 5 mmol/L BUN 17 (9-20) mg/dL Creatinine 1.31 H (0.66-1.25) mg/dL Est GFR (CKD-EPI)AfAm 61 (>60 ml/min/1.73 sqM) Est GFR (CKD-EPI)NonAf 53 (>60 ml/min/1.73 sqM) Glucose 109 H (74-99) mg/dL Calcium 8.2 L (8.4-10.2) mg/dL Total Bilirubin 0.7 (0.2-1.3) mg/dL AST 21 (17-59) U/L ALT 14 (4-49) U/L Alkaline Phosphatase 69 (38-126) U/L Total Protein 6.0 L (6.3-8.2) g/dL Albumin 3.6 (3.5-5.0) g/dL Critical Care Time Critical Care Time: Yes Total Critical Care Time: 35 <Sean Angel - Last Filed: 08/06/23 15:19> Disposition <Mini Mckeon - Last Filed: 08/06/23 11:09> Is patient prescribed a controlled substance at d/c from ED?: No Time of Disposition: 15:19 <Sean Angel - Last Filed: 08/06/23 15:19> Clinical Impression: Anemia, MDS (myelodysplastic syndrome) Disposition: HOME SELF-CARE Condition: Stable Additional Instructions: Please return to the Emergency Department if symptoms worsen or any other concerns. Referrals: Daniel Copeland MD [Primary Care Provider] - 1-2 days
[2023-08-06 13:43] LABS: ALT 14 U/L (4-49); AST 21 U/L (17-59); African American GFR (CKD) 61 (>60 ml/min/1.73 sqM); Albumin 3.6 g/dL (3.5-5.0); Alkaline Phosphatase 69 U/L (38-126); Anion Gap 5 mmol/L; Blood Urea Nitrogen 17 mg/dL (9-20); Calcium 8.2 mg/dL (8.4-10.2); Carbon Dioxide 24 mmol/L (22-30); Chloride 108 mmol/L (98-107); Glucose 109 mg/dL (74-99); Non-African American GFR(CKD) 53 (>60 ml/min/1.73 sqM); Potassium 4.2 mmol/L (3.5-5.1); Sodium 137 mmol/L (137-145); Total Bilirubin 0.7 mg/dL (0.2-1.3)
[2023-08-06 13:57] LABS: Anisocytosis Slight; HCT 20.1 % (39.0-53.0); MCH 35.2 pg (25.0-35.0); MCHC 35.6 g/dL (31.0-37.0); MCV 98.9 fL (80.0-100.0); Macrocytosis Slight; Poikilocytosis Slight; RBC 2.04 m/uL (4.30-5.90); RDW 18.5 % (11.5-15.5)
[2023-08-06 14:00] LABS: HGB 7.2 gm/dL (13.0-17.5); INR 0.9 (<1.2); Partial Thromboplastin Time 22.3 sec (22.0-30.0); Prothrombin Time 10.2 sec (10.0-12.5); WBC 1.1 k/uL (3.8-10.6)
[2023-08-06 14:49] LABS: Neutrophils % (M) 17 %
[2023-08-06 14:52] LABS: Eosinophils # (M) 0.06 k/uL (0-0.7); Large Platelets Present; Monocytes # (M) 0.06 k/uL (0-1.0); Nucleated Red Blood Cells 0 /100 WBC (0-0); Polychromasia Present; Total Cells Counted 100
[2023-08-06 14:54] LABS: Platelet Count 33 k/uL (150-450)
[2023-08-06 14:58] LABS: Neutrophils # (M) 0.19 k/uL (1.3-7.7)
[2023-08-06 18:45] VITALS: RESP 16
[2023-08-06] MEDS: ACETAMINOPHEN TAB 500 MG TAB PO STA ×2 (19:09→19:12)
[2023-08-06 21:54] VITALS: BP 135/63; PULSE 67; TEMP 98.3
== END 2023-08-06 21:28 | disposition home or self-care (01) ==
LOC: EC 11:02
DX: D46.9 Myelodysplastic syndrome, unspecified (principal); Z87.891 Personal history of nicotine dependence
CPT/HCPCS: 36415; 86900; 86901; 80053; 85025; 85610; 85730; 86850; 86920; 99284; 36430; P9016

== ENCOUNTER 2023-08-13 20:21 | Inpatient (IN) | payer OTHER, MEDICARE ==
--- NOTE | 2023-08-13 21:30 | ED ---
General Adult HPI - General Source: patient, RN notes reviewed Mode of arrival: ambulatory Limitations: no limitations <Bhumika Lyons - Last Filed: 08/13/23 21:29> <Vic Carlson - Last Filed: 08/14/23 07:40> - General Chief complaint: Fever Stated complaint: fever sore throat abd pain Time Seen by Provider: 08/13/23 21:29 - History of Present Illness Initial comments: Quick [id number] male who is immunocompromised presents with sore throat and fever x 1 day. He is also complaining of epigastric abdominal pain that he believes is due to a hernia. Denies nausea, vomiting, diarrhea (Bhumika Lyons) - Related Data Home Medications Medication Instructions Recorded Confirmed Aspirin 81 mg PO QAM 02/25/22 06/11/23 Atorvastatin [Lipitor] 80 mg PO HS 02/25/22 06/11/23 Ezetimibe [Zetia] 10 mg PO QAM 02/25/22 06/11/23 Melatonin 3 mg PO HS 02/25/22 06/11/23 Metoprolol Succinate (ER) [Toprol 25 mg PO QAM 02/25/22 06/11/23 Xl] Omeprazole 40 mg PO BID 02/25/22 06/11/23 Pramipexole [Mirapex] 0.125 mg PO HS 02/25/22 06/11/23 Sertraline [Zoloft] 200 mg PO DAILY 02/25/22 06/11/23 lisinopriL [Zestril] 10 mg PO QAM 02/25/22 06/11/23 traZODone HCL 100 mg PO HS 02/25/22 06/11/23 Cholecalciferol [Vitamin D3 (10 10 mg PO BID 03/31/23 06/11/23 Mcg = 400 Iu)] Clopidogrel Bisulfate [Clopidogrel] 75 mg PO QAM 03/31/23 06/11/23 Prazosin [Minipress] 2 mg PO BID 03/31/23 06/11/23 Allergies Allergy/AdvReac Type Severity Reaction Status Date / Time No Known Allergies Allergy Verified 08/13/23 21:04 Review of Systems ROS Other: All systems not noted in ROS Statement are negative. <Bhumika Lyons - Last Filed: 08/13/23 21:29> ROS Other: All systems not noted in ROS Statement are negative. <Vic Carlson - Last Filed: 08/14/23 07:40> ROS Statement: Those systems with pertinent positive or pertinent negative responses have been documented in the HPI. Past Medical History Past Medical History: Coronary Artery Disease (CAD), Cancer, Chest Pain / Angina, Hyperlipidemia, Hypertension, Renal Disease Additional Past Medical History / Comment(s): PAROXYSMAL ATRIAL TACHYCARDIA, HX RENAL, PROSTATE AND SKIN CNACER ALL WITH SURGERY, myelodis plastic. History of Any Multi-Drug Resistant Organisms: None Reported Past Surgical History: Heart Catheterization, Heart Catheterization With Stent, Prostate Surgery Additional Past Surgical History / Comment(s): RT NEPHRECTOMY IN 1991, PROSTATECTOMY 2009, SKIN CANCER REMOVED LT ARM, LT HAND FINGERS REATTACHED, COLONOSCOPY, BILAT CATARACTS REMOVED WITH LENS IMPLANTS Past Anesthesia/Blood Transfusion Reactions: No Reported Reaction Date of Last Stent Placement:: 2021 Past Psychological History: Anxiety, Depression, PTSD Smoking Status: Former smoker Past Alcohol Use History: None Reported Past Drug Use History: None Reported - Past Family History Father Family Medical History: Cancer Mother Family Medical History: Cancer <Bhumika Lyons - Last Filed: 08/13/23 21:29> General Exam Limitations: no limitations <Bhumika Lyons - Last Filed: 08/13/23 21:29> Limitations: no limitations General appearance: alert, in no apparent distress Head exam: Present: atraumatic, normocephalic Eye exam: Present: normal appearance, PERRL, EOMI. Absent: scleral icterus, conjunctival injection, nystagmus ENT exam: Present: mucous membranes dry Neck exam: Present: normal inspection, full ROM. Absent: tenderness, meningismus, lymphadenopathy Respiratory exam: Present: normal lung sounds bilaterally. Absent: respiratory distress, wheezes, rales, rhonchi, stridor, accessory muscle use Cardiovascular Exam: Present: regular rate, normal rhythm, normal heart sounds. Absent: systolic murmur, diastolic murmur, rubs, gallop GI/Abdominal exam: Present: soft, hernia (Patient has a ventral hernia that I was able to reduce at the bedside without difficulty.). Absent: distended, tenderness, guarding, rebound, rigid, mass Extremities exam: Present: normal inspection, normal capillary refill. Absent: pedal edema, calf tenderness Back exam: Present: normal inspection. Absent: CVA tenderness (R), CVA t enderness (L) Neurological exam: Present: alert, oriented X3 Skin exam: Present: warm, dry, intact, normal color. Absent: rash <Vic Carlson - Last Filed: 08/14/23 07:40> - General Exam Comments Initial Comments: Visual Physical Exam Vital signs reviewed General: Well-appearing, nontoxic, no acute distress. Head: Normocephalic, atraumatic Eyes: PERRLA, EOMI ENT: Airway patent Chest: Nonlabored breathing Skin: No visual rash, normal skin tone Neuro: Alert and oriented 3 Musculoskeletal: No gross abnormalities (Bhumika Lyons) Course Vital Signs 08/13/23 08/13/23 08/13/23 21:04 21:45 23:15 Temperature 100.4 F H 99.3 F 99.2 F Pulse Rate 76 73 76 Respiratory 16 18 18 Rate Blood Pressure 93/49 133/93 139/88 O2 Sat by Pulse 96 97 97 Oximetry 08/14/23 08/14/23 02:00 05:00 Temperature Pulse Rate 82 73 Respiratory 18 18 Rate Blood Pressure 113/70 117/55 O2 Sat by Pulse 93 L 95 Oximetry Medical Decision Making <Bhumika Lyons - Last Filed: 08/13/23 21:29> - Lab Data Result diagrams: 08/13/23 21:45 08/13/23 21:45 <Vic Carlson - Last Filed: 08/14/23 07:40> - Medical Decision Making I completed the quick note portion of this chart signed Bhumika Lyons PA-C (Bhumika Lyons) - Lab Data Lab Results 08/13/23 08/13/23 08/13/23 Range/Units 21:45 21:45 21:45 WBC 0.8 L* (3.8-10.6) k/uL RBC 2.42 L (4.30-5.90) m/uL Hgb 8.7 L D (13.0-17.5) gm/dL Hct 24.5 L (39.0-53.0) % MCV 101.3 H (80.0-100.0) fL MCH 36.2 H (25.0-35.0) pg MCHC 35.7 (31.0-37.0) g/dL RDW 17.9 H (11.5-15.5) % Plt Count 51 L D (150-450) k/uL MPV 11.2 Neutrophils % Not Reportable Lymphocytes % Not Reportable Monocytes % Not Reportable Eosinophils % Not Reportable Basophils % Not Reportable Neutrophils # Not Reportable Lymphocytes # Not Reportable Monocytes # Not Reportable Eosinophils # Not Reportable Basophils # Not Reportable Differential Comment Manual Slide Review Performed Hypochromasia Slight Poikilocytosis Slight Poikilocytosis (manual Present Anisocytosis Slight Anisocytosis (manual) Present Macrocytosis Moderate Sodium 138 (137-145) mmol/L Potassium 4.4 (3.5-5.1) mmol/L Chloride 107 (98-107) mmol/L Carbon Dioxide 21 L (22-30) mmol/L Anion Gap 10 mmol/L BUN 25 H (9-20) mg/dL Creatinine 1.68 H (0.66-1.25) mg/dL Est GFR (CKD-EPI)AfAm 45 (>60 ml/min/1.73 sqM) Est GFR (CKD-EPI)NonAf 39 (>60 ml/min/1.73 sqM) Glucose 113 H (74-99) mg/dL Plasma Lactic Acid Bill 0.5 L (0.7-2.0) mmol/L Calcium 8.1 L (8.4-10.2) mg/dL Total Bilirubin 0.8 (0.2-1.3) mg/dL AST 17 (17-59) U/L ALT 11 (4-49) U/L Alkaline Phosphatase 69 (38-126) U/L Total Protein 6.3 (6.3-8.2) g/dL Albumin 3.7 (3.5-5.0) g/dL Urine Color Urine Appearance (Clear) Urine pH (5.0-8.0) Ur Specific [place] (1.001-1.035) Urine Protein (Negative) Urine Glucose (UA) (Negative) Urine Ketones (Negative) Urine Blood (Negative) Urine Nitrite (Negative) Urine Bilirubin (Negative) Urine Urobilinogen (<2.0) mg/dL Ur Leukocyte Esterase (Negative) Influenza Type A (PCR) (Not Detectd) Influenza Type B (PCR) (Not Detectd) RSV (PCR) (Not Detectd) SARS-CoV-2 (PCR) (Not Detectd) Group A Strep (PCR) (Not Detectd) 08/13/23 08/13/23 08/13/23 Range/Units 21:45 21:45 22:25 WBC (3.8-10.6) k/uL RBC (4.30-5.90) m/uL Hgb (13.0-17.5) gm/dL Hct (39.0-53.0) % MCV (80.0-100.0) fL MCH (25.0-35.0) pg MCHC (31.0-37.0) g/dL RDW (11.5-15.5) % Plt Count (150-450) k/uL MPV Neutrophils % Lymphocytes % Monocytes % Eosinophils % Basophils % Neutrophils # Lymphocytes # Monocytes # Eosinophils # Basophils # Differential Comment Manual Slide Review Hypochromasia Poikilocytosis Poikilocytosis (manual Anisocytosis Anisocytosis (manual) Macrocytosis Sodium (137-145) mmol/L Potassium (3.5-5.1) mmol/L Chloride (98-107) mmol/L Carbon Dioxide (22-30) mmol/L Anion Gap mmol/L BUN (9-20) mg/dL Creatinine (0.66-1.25) mg/dL Est GFR (CKD-EPI)AfAm (>60 ml/min/1.73 sqM) Est GFR (CKD-EPI)NonAf (>60 ml/min/1.73 sqM) Glucose (74-99) mg/dL Plasma Lactic Acid Bill (0.7-2.0) mmol/L Calcium (8.4-10.2) mg/dL Total Bilirubin (0.2-1.3) mg/dL AST (17-59) U/L ALT (4-49) U/L Alkaline Phosphatase (38-126) U/L Total Protein (6.3-8.2) g/dL Albumin (3.5-5.0) g/dL Urine Color Yellow Urine Appearance Clear (Clear) Urine pH 6.5 (5.0-8.0) Ur Specific [place] 1.022 (1.001-1.035) Urine Protein Trace H (Negative) Urine Glucose (UA) Negative (Negative) Urine Ketones Negative (Negative) Urine Blood Negative (Negative) Urine Nitrite Negative (Negative) Urine Bilirubin Negative (Negative) Urine Urobilinogen 3.0 (<2.0) mg/dL Ur Leukocyte Esterase Negative (Negative) Influenza Type A (PCR) Not Detected (Not Detectd) Influenza Type B (PCR) Not Detected (Not Detectd) RSV (PCR) Not Detected (Not Detectd) SARS-CoV-2 (PCR) Not Detected (Not Detectd) Group A Strep (PCR) NOT DETECTED (Not Detectd) Disposition <Bhumika Lyons - Last Filed: 08/13/23 21:29> Is patient prescribed a controlled substance at d/c from ED?: No <Vic Carlson - Last Filed: 08/14/23 07:40> Clinical Impression: Fever, Leukocytopenia Disposition: ADMITTED IP TO THIS HOSP Condition: Serious
[2023-08-13 22:05] LABS: ALT 11 U/L (4-49); AST 17 U/L (17-59); African American GFR (CKD) 45 (>60 ml/min/1.73 sqM); Albumin 3.7 g/dL (3.5-5.0); Alkaline Phosphatase 69 U/L (38-126); Anion Gap 10 mmol/L; Blood Urea Nitrogen 25 mg/dL (9-20); Calcium 8.1 mg/dL (8.4-10.2); Carbon Dioxide 21 mmol/L (22-30); Chloride 107 mmol/L (98-107); Glucose 113 mg/dL (74-99); Non-African American GFR(CKD) 39 (>60 ml/min/1.73 sqM); Potassium 4.4 mmol/L (3.5-5.1); Sodium 138 mmol/L (137-145); Total Bilirubin 0.8 mg/dL (0.2-1.3); Total Protein 6.3 g/dL (6.3-8.2)
[2023-08-13 22:15] LABS: Anisocytosis Slight; HCT 24.5 % (39.0-53.0); Hypochromasia Slight; MCH 36.2 pg (25.0-35.0); MCHC 35.7 g/dL (31.0-37.0); MCV 101.3 fL (80.0-100.0); Macrocytosis Moderate; Mean Platelet Volume 11.2; Poikilocytosis Slight; RBC 2.42 m/uL (4.30-5.90); RDW 17.9 % (11.5-15.5)
[2023-08-13] MEDS: SODIUM CHLORIDE 0.9% 1,000 ML IV ONE (22:16)
[2023-08-13] MEDS: SODIUM CHLORIDE 0.9% 500 ML 500 ML IV STA (22:16)
[2023-08-13] MEDS: SODIUM CHLORIDE 0.9% 1,000 ML IV STA (22:16)
[2023-08-13 22:20] LABS: HGB 8.7 gm/dL (13.0-17.5); WBC 0.8 k/uL (3.8-10.6)
[2023-08-13 22:21] LABS: Platelet Count 51 k/uL (150-450)
[2023-08-13 22:47] LABS: Anisocytosis (M) Present; Poikilocytosis (M) Present
[2023-08-13 22:58] LABS: Appearance,Urine Clear (Clear); Bilirubin,Urine Negative (Negative); Blood,Urine Negative (Negative); Color,Urine Yellow; Glucose,Urine (UA) Negative (Negative); Ketones,Urine Negative (Negative); Leukocyte Esterase,Urine Negative (Negative); Nitrite,Urine Negative (Negative); PH, Urine 6.5 (5.0-8.0); Protein,Urine Trace (Negative); Specific Gravity,Urine 1.022 (1.001-1.035)
--- NOTE | 2023-08-13 23:57 | XR ---
EXAMINATION TYPE: XR chest 2V DATE OF EXAM: 08/13/2023 COMPARISON: Chest x-ray June 20, 2016 HISTORY: Fever. TECHNIQUE: Frontal and lateral views of the chest are obtained. FINDINGS: Some bilateral reticular interstitial prominence. There is no suspicious focal air space o pacity, pleural effusion, or pneumothorax seen. The cardiac silhouette size is stable and upper limi ts of normal. The osseous structures are intact. IMPRESSION: Bilateral reticular interstitial prominence favors chronic parenchymal fibrosis versus l ess likely edema. No suspicious acute pulmonary infiltrate.
[2023-08-14] MEDS: SODIUM CHLORIDE 0.9% 500 ML 500 ML IV STA (00:07)
[2023-08-14] MEDS: CEFEPIME 2 GM in SODIUM CHLORIDE 0.9% 100 ML IVPB STA (00:07)
[2023-08-14] MEDS ORDERED: NALOXONE 0.4 MG/ML 1 ML VIAL IV PRN (04:47)
[2023-08-14] MEDS: SODIUM CHLORIDE 0.9% 1,000 ML IV SCH (06:26)
[2023-08-14] MEDS: ASPIRIN 81 MG PO SCH (09:31)
[2023-08-14] MEDS: PRAZOSIN 1 MG CAP PO SCH ×2 (09:31→20:59)
[2023-08-14] MEDS: METOPROLOL SUCCINATE (ER) 25 MG TAB.ER.24H PO SCH (09:31)
[2023-08-14] MEDS: SERTRALINE 100 MG TAB PO SCH (09:31)
[2023-08-14] MEDS: CLOPIDOGREL 75 MG TAB PO SCH (09:31)
[2023-08-14] MEDS: lisinopriL 10 MG TAB PO SCH (09:31)
[2023-08-14] MEDS: PANTOPRAZOLE 40 MG TABLET PO SCH (09:31)
[2023-08-14] MEDS: EZETIMIBE 10 MG TAB PO SCH (09:31)
[2023-08-14] MEDS: CEFEPIME 2 GM in SODIUM CHLORIDE 0.9% 100 ML IVPB SCH ×2 (09:32→20:58)
[2023-08-14 13:31] LABS: Anisocytosis Slight; HCT 22.1 % (39.0-53.0); HGB 7.4 gm/dL (13.0-17.5); Hypochromasia Slight; MCH 33.9 pg (25.0-35.0); MCHC 33.3 g/dL (31.0-37.0); MCV 101.9 fL (80.0-100.0); Macrocytosis Moderate; Poikilocytosis Slight; RBC 2.17 m/uL (4.30-5.90); RDW 17.7 % (11.5-15.5)
[2023-08-14 13:56] LABS: WBC 0.7 k/uL (3.8-10.6)
[2023-08-14 13:58] LABS: ALT 10 U/L (4-49); AST 19 U/L (17-59); African American GFR (CKD) 74 (>60 ml/min/1.73 sqM); Albumin 2.9 g/dL (3.5-5.0); Albumin/Globulin Ratio 1.2; Alkaline Phosphatase 60 U/L (38-126); Anion Gap 5 mmol/L; Blood Urea Nitrogen 21 mg/dL (9-20); Calcium 7.6 mg/dL (8.4-10.2); Carbon Dioxide 20 mmol/L (22-30); Chloride 111 mmol/L (98-107); Globulin 2.4 g/dL; Glucose 110 mg/dL (74-99); Non-African American GFR(CKD) 64 (>60 ml/min/1.73 sqM); Potassium 4.1 mmol/L (3.5-5.1); Sodium 136 mmol/L (137-145); Total Bilirubin 0.6 mg/dL (0.2-1.3); Total Protein 5.3 g/dL (6.3-8.2)
[2023-08-14 14:28] LABS: Platelet Count 45 k/uL (150-450)
[2023-08-14] MEDS: SALT AND SODA MOUTHWASH 1,000 ML PO SCH (15:36)
--- NOTE | 2023-08-14 18:05 | P.HPIM ---
History of Present Illness H&P Date: 08/14/23 Chief Complaint: Febrile neutropenia HISTORY OF PRESENT ILLNESS: This is a 78-year-old male with a previous medical history significant for hypertension and hypertensive cardiovascular disease, hyperlipidemia, history of coronary artery disease status post left heart catheterization that was done recently by Dr. Hines and that showed moderate CAD with significant stenosis of the obtuse marginal branch #1 and #2 but they were small vessels it was elected for the patient to be treated medically at that time, with aggressive risk factor modifications, history of chronic kidney disease stage IIIa, enlarged prostate, patient was recently diagnosed with myelodysplasia after he was referred to Dr. 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 REVIEW OF SYSTEMS: Constitutional: positive for documented fever, no chills, positive for night sweats. positive for weight change. generalized weakness, fatigue or lethargy. No daytime sleepiness. EENT: No headache. No blurred vision or double vision, no loss of vision. hard of Hearing, no ringing in the ears, no dizziness. No nasal drainage or congestion. No epistaxis. No sore throat. Lungs: No shortness of breath, no cough, no sputum production. No wheezing. Reports dyspnea with activity. Cardiovascular: No chest pain, no lower extremity edema. No palpitations. No paroxysmal nocturnal dyspnea. No orthopnea. No lightheadedness or dizziness. No syncopal episodes. Abdominal: Reports no abdominal pain. No nausea, vomiting. No diarrhea. No constipation. No bloody or tarry stools reports loss of appetite. Genitourinary: No dysuria, increased frequency, urgency. No urinary retention. Musculoskeletal: No myalgias. No muscle weakness, no gait dysfunction, no frequent falls. No back pain. No neck pain. Integumentary: No wounds, no lesions. No rash or pruritus. No unusual bruising. No change in hair or nails. Neurologic: No aphasia. No facial droop. No change in mentation. No head injury. No headache. No paralysis. No paresthesia. Psychiatric: No depression. No anxiety. No mood swings. Endocrine: No abnormal blood sugars. No weight change. PAST MEDICAL HISTORY: Hypertension and hypertensive cardiovascular disease. Mixed hyperlipidemia. Myelodysplastic syndrome. Coronary artery disease of [place] coronary artery. Enlarged prostate. Chronic kidney disease stage IIIa. History of renal cancer status post right nephrectomy GERD. Anxiety. Obstructive sleep apnea. Detrusor instability. PAST SURGICAL HISTORY: Right nephrectomy due to renal cell carcinoma 1991 Left hand reconstructive finger surgery 1998 Prostatectomy due to prostate cancer 2009 Left arm skin cancer squamous cell carcinoma 2018 Cataract surgery Colonoscopy 03/08/2021 Left heart catheterization with PCI of the LCx obtuse marginal 1 02/26/2022 Left heart catheterization without PCI 2023. Bone marrow biopsy 06/17/2023. SOCIAL HISTORY: Patient used to smoke about a pack every day he smoked for about 50 years and quit in 2012, patient used to drink but he quit, he denies any drug use or abuse, he served in [place] and he was exposed to agent orange. FAMILY HISTORY: Father at age of 86 from lung cancer, mother at the age of 59 from lymphoma, patient has 4 sisters 1 with diabetes 1 with bicuspid aortic valve status post aortic valve replacement, patient has 1 son and 3 daughters no major medical problems. PHYSICAL EXAMINATION: General: This is a 78-year-old male laying down in bed in no apparent distress. HEENT: Head is atraumatic, normocephalic, pupils were equal round reactive to light and recommendation, extraocular muscle movement were intact, sclera nonicteric, conjunctivae were pale, mucous membranes of the mouth are somewhat dry. Neck: Supple, no JVP, normal carotid upstroke bilaterally, no lymphadenopathy. Chest: Decreased breath sounds at the bases, few rhonchi, no expiratory wheezes, no chest wall tenderness, no intercostal retractions. Heart: First heart sound is normal, second heart sound is normal there is systolic ejection murmur 2/6 located in the left sternal border. Abdomen: Soft, nontender, nondistended, positive bowel sounds. Extremities: There is no edema no calf tenderness DP +2 bilaterally. Neurologic examination: Patient is awake alert and oriented x3, cranial nerves II-12 appear grossly intact, muscle power were 5 out of 5 in upper extremities and 5 out of 5 in bilateral lower extremities, deep tendon reflexes normal bilaterally. ASSESSMENT AND PLAN: 1. Febrile neutropenia after the first cycle of azacitidine that was administered 07/21/2023 patient did receive 1 unit of packed red blood cells as an outpatient he was started on ciprofloxacin 500 mg once every day as an outpatient along with fluconazole 100 mg once every day and acyclovir 400 mg orally twice every day by his oncologist, patient was placed on neutropenic precautions and he was started on cefepime 2 g IV piggyback every 12 hours to broaden the spectrum of antibiotic, blood cultures were obtained still pending at the time of dictation, monitor the patient over the next 24 hours, if there is no more fever patient can be discharged home tomorrow morning. 2. Myelodysplastic syndrome status post bone marrow biopsy June 17, 2023. 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 Patient has been started on azacitidine by hematology oncology he was supposed to get his second treatment on August 18, 2023. 4. Coronary artery disease status post PCI of the LCx/obtuse marginal branch #1. Continue patient on aspirin 81 mg once every day, Plavix 75 mg once every day, continue atorvastatin 80 mg once every day, ezetimibe 10 mg once every day, patient has been followed by Dr. Hines. 5. Hypertension and hypertensive cardiovascular disease. Continue patient on lisinopril 10 mg once every day, metoprolol ER 25 mg orally once every day. 6. Mixed hyperlipidemia. Continue patient on atorvastatin 80 mg once every day, ezetimibe 10 mg once every day, monitor lipid panel, keep LDL 55-70. 7. GERD. Continue pantoprazole 40 mg once every day. 8. History of prostate cancer status post prostatectomy. 9. History of renal cell carcinoma status post right nephrectomy. 10. Anxiety disorder. Continue sertraline 200 mg orally once every day. 11. Insomnia continue trazodone 100 mg orally once at bedtime. 12. Chronic kidney disease stage IIIa. Monitor the patient CMP, avoid nephrotoxins, Hep-Lock IV. 13. DVT prophylaxis. Bilateral knee-high MACKENZIE hose, avoid Lovenox or heparin due to the patient thrombocytopenia. 14. GI prophylaxis. Continue patient on Protonix 40 mg once every day. 15. Admit to inpatient. Estimated length of stay 2 midnights. 16. Patient is full code. Past Medical History Past Medical History: Coronary Artery Disease (CAD), Cancer, Chest Pain / Angina, Hyperlipidemia, Hypertension, Renal Disease Additional Past Medical History / Comment(s): PAROXYSMAL ATRIAL TACHYCARDIA, HX RENAL, PROSTATE AND SKIN CANCER ALL WITH SURGERY, myelodis plastic. History of Any Multi-Drug Resistant Organisms: None Reported Past Surgical History: Heart Catheterization, Heart Catheterization With Stent, Prostate Surgery Additional Past Surgical History / Comment(s): RT NEPHRECTOMY IN 1991, PROSTATECTOMY 2009, SKIN CANCER REMOVED LT ARM, LT HAND FINGERS REATTACHED, COLONOSCOPY, BILAT CATARACTS REMOVED WITH LENS IMPLANTS Past Anesthesia/Blood Transfusion Reactions: No Reported Reaction Date of Last Stent Placement:: 2021 Past Psychological History: Anxiety, Depression, PTSD Smoking Status: Former smoker Past Alcohol Use History: None Reported Additional Past Alcohol Use History / Comment(s): QUIT SMOKING 2012. PAST HX ETOH ABUSE LAST DRANK 1988 Past Drug Use History: None Reported - Past Family History Father Family Medical History: Cancer Mother Family Medical History: Cancer Medications and Allergies Home Medications Medication Instructions Recorded Confirmed Type Aspirin 81 mg PO QAM 02/25/22 08/14/23 History Atorvastatin [Lipitor] 80 mg PO HS 02/25/22 08/14/23 History Ezetimibe [Zetia] 10 mg PO QAM 02/25/22 08/14/23 History Melatonin 3 mg PO HS 02/25/22 08/14/23 History Metoprolol Succinate (ER) [Toprol 25 mg PO QAM 02/25/22 08/14/23 History Xl] Omeprazole 20 mg PO BID 02/25/22 08/14/23 History Pramipexole [Mirapex] 0.125 mg PO HS 02/25/22 08/14/23 History Sertraline [Zoloft] 200 mg PO DAILY 02/25/22 08/14/23 History lisinopriL [Zestril] 10 mg PO QAM 02/25/22 08/14/23 History traZODone HCL 100 mg PO HS 02/25/22 08/14/23 History Cholecalciferol [Vitamin D3 (10 10 mg PO DAILY 03/31/23 08/14/23 History Mcg = 400 Iu)] Clopidogrel Bisulfate [Clopidogrel] 75 mg PO QAM 03/31/23 08/14/23 History Prazosin HCl 2 mg PO HS 08/14/23 08/14/23 History Allergies Allergy/AdvReac Type Severity Reaction Status Date / Time No Known Allergies Allergy Verified 08/14/23 11:49 Physical Exam Vitals: Vital Signs Temp Pulse Pulse Resp BP BP Pulse Ox 08/14/23 07:44 98.8 F 74 20 144/68 96 08/14/23 06:27 98.6 F 74 16 132/53 97 08/14/23 05:00 73 18 117/55 95 08/14/23 02:00 82 18 113/70 93 L 08/13/23 23:15 99.2 F 76 18 139/88 97 08/13/23 21:45 99.3 F 73 18 133/93 97 08/13/23 21:04 100.4 F H 76 16 93/49 96 Intake and Output 08/13/23 08/14/23 08/14/23 22:59 06:59 14:59 Other: Weight 79.379 kg 79.379 kg Results CBC & Chem 7: 08/15/23 07:03 08/14/23 13:19 Labs: Abnormal Lab Results - Last 24 Hours (Table) 08/13/23 08/13/23 08/13/23 Range/Units 21:45 21:45 21:45 WBC 0.8 L* (3.8-10.6) k/uL RBC 2.42 L (4.30-5.90) m/uL Hgb 8.7 L D (13.0-17.5) gm/dL Hct 24.5 L (39.0-53.0) % MCV 101.3 H (80.0-100.0) fL MCH 36.2 H (25.0-35.0) pg RDW 17.9 H (11.5-15.5) % Plt Count 51 L D (150-450) k/uL Carbon Dioxide 21 L (22-30) mmol/L BUN 25 H (9-20) mg/dL Creatinine 1.68 H (0.66-1.25) mg/dL Glucose 113 H (74-99) mg/dL Plasma Lactic Acid Bill 0.5 L (0.7-2.0) mmol/L Calcium 8.1 L (8.4-10.2) mg/dL Urine Protein (Negative) 08/13/23 Range/Units 22:25 WBC (3.8-10.6) k/uL RBC (4.30-5.90) m/uL Hgb (13.0-17.5) gm/dL Hct (39.0-53.0) % MCV (80.0-100.0) fL MCH (25.0-35.0) pg RDW (11.5-15.5) % Plt Count (150-450) k/uL Carbon Dioxide (22-30) mmol/L BUN (9-20) mg/dL Creatinine (0.66-1.25) mg/dL Glucose (74-99) mg/dL Plasma Lactic Acid Bill (0.7-2.0) mmol/L Calcium (8.4-10.2) mg/dL Urine Protein Trace H (Negative) Thrombosis Risk Factor Assmnt - Choose All That Apply Other Risk Factors: Yes Each Risk Factor Represents 3 Points: Age 75 years or older Thrombosis Risk Factor Assessment Total Risk Factor Score: 3 Thrombosis Risk Factor Assessment Level: Moderate Risk
[2023-08-14] MEDS: ATORVASTATIN 80 MG TAB PO SCH (20:58)
[2023-08-14] MEDS: traZODone HCL 100 MG TAB PO SCH (20:58)
[2023-08-14] MEDS: MELATONIN 3 MG TABLET PO SCH (20:58)
[2023-08-14] MEDS ORDERED: PRAZOSIN 1 MG CAP PO SCH (21:00)
[2023-08-14] MEDS: PRAMIPEXOLE 0.125 MG TAB PO SCH (21:48)
--- NOTE | 2023-08-14 22:06 | P.CONS ---
History of Present Illness - Reason for Consult Consult date: 08/14/23 neutropenic fever, MDS Requesting physician: Vic Carlson - Chief Complaint fever - History of Present Illness Mr. Zabala is a 78-year-old gentleman with a PMH of CAD with drug-eluting stent placement and CKD. Referred to hematology for evaluation of bicytopenia. Tamiko l CBC in April 2021. Slight changes noted in April 2022-hemoglobin 11.7, platelets 134,000. March 2023 WBC 3.6, hemoglobin 10.7 and platelets 71,000. Anemia workup showed a ferritin of 140, saturation of 61% B12 205, folate 3.9, negative inflammatory markers no evidence of hemolysis, negative HIV/hepatitis, CMV and ADAMTS 13. Over the previous year patient reported constitutional symptoms of progressive fatigue, fevers without infectious etiology, night sweats, weight loss. He had also had some easier bruising. Patient is a [place] and was exposed to agent orange Bone marrow biopsy and aspirate performed 06/17/2023 revealed normocellular bone marrow with dysgranulopoiesis and disc megakaryocyte releases consistent with MDS. Less than 2% blasts, no ringed sideroblasts. Cytogenetic consistent with a complex karyotype with FISH revealing a 7 q. deletion. NGS with PPM 1D mutation, no IDH mutations. IPP SR score 5 consistent with a high risk MDS. He was started on azacitidine 07/21/2023 and has completed his first 7 day cycle. Pending meeting with [facility] to discuss transplant. Patient contacted the service overnight with reports of fever. Patient was directed to the emergency department for further workup and treatment of the same. On admission patient reports that he is feeling okay despite the fevers. He denies any oral irritation, nausea, vomiting, chest pain, unusual cough or purulent sputum production, abdominal pain or cramping, changes in bowel or bladder habits, no swelling in the lower extremities, bleeding. He denies any pain other than discomfort in his ventral hernia. Review of Systems 10 point ROS is neg except as stated in HPI Past Medical History Past Medical History: Coronary Artery Disease (CAD), Cancer, Chest Pain / Angina, Hyperlipidemia, Hypertension, Renal Disease Additional Past Medical History / Comment(s): PAROXYSMAL ATRIAL TACHYCARDIA, HX RENAL, PROSTATE AND SKIN CANCER ALL WITH SURGERY, myelodis plastic. History of Any Multi-Drug Resistant Organisms: None Reported Past Surgical History: Heart Catheterization, Heart Catheterization With Stent, Prostate Surgery Additional Past Surgical History / Comment(s): RT NEPHRECTOMY IN 1991, PROSTATECTOMY 2009, SKIN CANCER REMOVED LT ARM, LT HAND FINGERS REATTACHED, COLONOSCOPY, BILAT CATARACTS REMOVED WITH LENS IMPLANTS Past Anesthesia/Blood Transfusion Reactions: No Reported Reaction Date of Last Stent Placement:: 2021 Past Psychological History: Anxiety, Depression, PTSD Smoking Status: Former smoker Past Alcohol Use History: None Reported Additional Past Alcohol Use History / Comment(s): QUIT SMOKING 2012. PAST HX ETOH ABUSE LAST DRANK 1988 Past Drug Use History: None Reported - Past Family History Father Family Medical History: Cancer Mother Family Medical History: Cancer Medications and Allergies Home Medications Medication Instructions Recorded Confirmed Type Aspirin 81 mg PO QAM 02/25/22 08/14/23 History Atorvastatin [Lipitor] 80 mg PO HS 02/25/22 08/14/23 History Ezetimibe [Zetia] 10 mg PO QAM 02/25/22 08/14/23 History Melatonin 3 mg PO HS 02/25/22 08/14/23 History Metoprolol Succinate (ER) [Toprol 25 mg PO QAM 02/25/22 08/14/23 History Xl] Omeprazole 20 mg PO BID 02/25/22 08/14/23 History Pramipexole [Mirapex] 0.125 mg PO HS 02/25/22 08/14/23 History Sertraline [Zoloft] 200 mg PO DAILY 02/25/22 08/14/23 History lisinopriL [Zestril] 10 mg PO QAM 02/25/22 08/14/23 History traZODone HCL 100 mg PO HS 02/25/22 08/14/23 History Cholecalciferol [Vitamin D3 (10 10 mg PO DAILY 03/31/23 08/14/23 History Mcg = 400 Iu)] Clopidogrel Bisulfate [Clopidogrel] 75 mg PO QAM 03/31/23 08/14/23 History Prazosin HCl 2 mg PO HS 08/14/23 08/14/23 History Allergies Allergy/AdvReac Type Severity Reaction Status Date / Time No Known Allergies Allergy Verified 08/14/23 11:49 Physical Exam Vitals: Vital Signs Temp Pulse Pulse Resp BP BP Pulse Ox 08/14/23 07:44 98.8 F 74 20 144/68 96 08/14/23 06:27 98.6 F 74 16 132/53 97 08/14/23 05:00 73 18 117/55 95 08/14/23 02:00 82 18 113/70 93 L 08/13/23 23:15 99.2 F 76 18 139/88 97 08/13/23 21:45 99.3 F 73 18 133/93 97 08/13/23 21:04 100.4 F H 76 16 93/49 96 Intake and Output 08/13/23 08/14/23 08/14/23 22:59 06:59 14:59 Other: Weight 79.379 kg 79.379 kg - Constitutional General appearance: average body habitus, cooperative, no acute distress - EENT Eyes: anicteric sclerae, EOMI ENT: hearing grossly normal, normal oropharynx - Neck Neck: no lymphadenopathy - Respiratory Respiratory: bilateral: CTA - Cardiovascular Rhythm: regular Heart sounds: normal: S1, S2 Abnormal Heart Sounds: no systolic murmur, no diastolic murmur, no rub, no S3 Gallop, no S4 Gallop, no click, no other - Gastrointestinal General gastrointestinal: no absent bowel sounds, no decreased bowel sounds, no distended, no hepatomegaly, no hyperactive bowel sounds, normal bowel sounds, no organomegaly, no rigid, no scaphoid, soft, no splenomegaly, tenderness (mild tenderness on lower abd), umbilical hernia, no ventral hernia - Integumentary Integumentary: normal - Neurologic Neurologic: CNII-XII intact - Musculoskeletal Musculoskeletal: strength equal bilaterally - Psychiatric Psychiatric: A&O x's 3, appropriate affect, intact judgment & insight Results CBC & Chem 7: 08/14/23 13:19 08/14/23 13:19 Labs: Abnormal Lab Results - Last 24 Hours (Table) 08/13/23 08/13/23 08/13/23 Range/Units 21:45 21:45 21:45 WBC 0.8 L* (3.8-10.6) k/uL RBC 2.42 L (4.30-5.90) m/uL Hgb 8.7 L D (13.0-17.5) gm/dL Hct 24.5 L (39.0-53.0) % MCV 101.3 H (80.0-100.0) fL MCH 36.2 H (25.0-35.0) pg RDW 17.9 H (11.5-15.5) % Plt Count 51 L D (150-450) k/uL Carbon Dioxide 21 L (22-30) mmol/L BUN 25 H (9-20) mg/dL Creatinine 1.68 H (0.66-1.25) mg/dL Glucose 113 H (74-99) mg/dL Plasma Lactic Acid Bill 0.5 L (0.7-2.0) mmol/L Calcium 8.1 L (8.4-10.2) mg/dL Urine Protein (Negative) 08/13/23 Range/Units 22:25 WBC (3.8-10.6) k/uL RBC (4.30-5.90) m/uL Hgb (13.0-17.5) gm/dL Hct (39.0-53.0) % MCV (80.0-100.0) fL MCH (25.0-35.0) pg RDW (11.5-15.5) % Plt Count (150-450) k/uL Carbon Dioxide (22-30) mmol/L BUN (9-20) mg/dL Creatinine (0.66-1.25) mg/dL Glucose (74-99) mg/dL Plasma Lactic Acid Bill (0.7-2.0) mmol/L Calcium (8.4-10.2) mg/dL Urine Protein Trace H (Negative) Chest x-ray: report reviewed Assessment and Plan (1) Febrile neutropenia Current Visit: Yes Status: Acute Priority: High Code(s): D70.9 - NEUTROPENIA, UNSPECIFIED; R50.81 - FEVER PRESENTING WITH CONDITIONS CLASSIFIED ELSEWHERE SNOMED Code(s): 849506216 (2) MDS (myelodysplastic syndrome) Current Visit: No Status: Acute Code(s): D46.9 - MYELODYSPLASTIC SYNDROME, UNSPECIFIED SNOMED Code(s): 560107759 (3) Antineoplastic chemotherapy induced pancytopenia Current Visit: Yes Status: Acute Priority: High Code(s): D61.810 - ANTINEOPLASTIC CHEMOTHERAPY INDUCED PANCYTOPENIA; T45.1X5A - ADVERSE EFFECT OF ANTINEOPLASTIC AND IMMUNOSUP DRUGS, INIT SNOMED Code(s): 519665939829284 Plan: Febrile neutropenia -WBC 0.7, ANC not reportable, s/p 1 cycle of chemo -Pancultures ordered -Empiric antibiotics -Due to low counts and mild abdominal tenderness diet reduced to full liquid Myelodysplastic syndrome -Status post first cycle of Vidaza days 1 through 7. Chemotherapy-induced pancytopenia chemotherapy-induced pancytopenia -WBC 0.7. Pending help patient does and white cell recovery. May consider G- CSF -Hemoglobin 7.4. Transfuse for hemoglobin less than 7 or if symptomatic -Platelets 45,000. Transfuse for platelets less than 10,000 or if symptomatic -Recheck CBC in the a.m. If platelets continue to drop, aspirin and Plavix may need to be held. SCDs for DVT prophylaxis. If WBC/ANC is not showing signs of recovery possible short acting G-CSF -Postchemotherapy supportive medications ordered-salt and soda, Zofran
[2023-08-15 07:56] LABS: Anisocytosis Slight; HCT 21.8 % (39.0-53.0); HGB 7.3 gm/dL (13.0-17.5); Hypochromasia Slight; MCH 33.9 pg (25.0-35.0); MCHC 33.6 g/dL (31.0-37.0); MCV 100.8 fL (80.0-100.0); Macrocytosis Slight; Mean Platelet Volume 9.9; Poikilocytosis Moderate; RBC 2.17 m/uL (4.30-5.90); RDW 17.7 % (11.5-15.5)
[2023-08-15 08:00] LABS: Platelet Count 59 k/uL (150-450); WBC 0.5 k/uL (3.8-10.6)
[2023-08-15] MEDS: CHOLECALCIFEROL 125 MCG (5000 IU) TABLET PO SCH (08:36)
[2023-08-15] MEDS: PANTOPRAZOLE 40 MG TABLET PO SCH (08:36)
[2023-08-15 12:55] LABS: Poikilocytosis (M) Present
--- NOTE | 2023-08-15 16:24 | P.PN ---
Subjective Progress Note Date: 08/15/23 HISTORY OF PRESENT ILLNESS: This is a 78-year-old male with a previous medical history significant for hypertension and hypertensive cardiovascular disease, hyperlipidemia, history of coronary artery disease status post left heart catheterization that was done recently by Dr. Hines and that showed moderate CAD with significant stenosis of the obtuse marginal branch #1 and #2 but they were small vessels it was elected for the patient to be treated medically at that time, with aggressive risk factor modifications, history of chronic kidney disease stage IIIa, enlarged prostate, patient was recently diagnosed with myelodysplasia after he was referred to Dr. 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, patient already started on azacitidine cycle 1 on 07/21/2023 and the patient developed to have a significant anemia and he was seen by his hematology oncology and he was started on acyclovir 400 mg orally twice every day as well as ciprofloxacin 500 mg once every day and fluconazole 100 mg once every day, patient was brought into the emergency department at [facility] last night after he contacted his clinical appeals auditor oncologist due to his low-grade temperature, and he was seen and evaluated in the ER, and because of the febrile neutropenia he was admitted to the hospital he was started prophylactically on cefepime 2 g IV piggyback every 8 hours, blood cultures were obtained, urine was negative, patient was admitted to the hospital with hematology consultation as well. 08/14: Patient is sitting up in the chair no apparent distress, he denies any chest pain, he has no soreness in his mouth, his diet was downgraded to full liquid diet, patient has no nausea or vomiting or diarrhea, he will be kept in the hospital for another 24 hours, to check the final result of the culture continue cefepime meanwhile, monitor the patient very closely at this time, he was seen earlier by oncology, he was started on salt and soda mouthwash, continue with bilateral knee-high MACKENZIE hose, no Lovenox at this time, transfuse for hemoglobin less than 7, continue to monitor his white count as well as his platelet counts, patient appears to be in good spirits, he seems to be doing well he will likely will be discharged home tomorrow morning. REVIEW OF SYSTEMS: Constitutional: positive for documented fever, no chills, positive for night sweats. positive for weight change. generalized weakness, fatigue or lethargy. No daytime sleepiness. EENT: No headache. No blurred vision or double vision, no loss of vision. hard of Hearing, no ringing in the ears, no dizziness. No nasal drainage or congestion. No epistaxis. No sore throat. Lungs: No shortness of breath, no cough, no sputum production. No wheezing. Reports dyspnea with activity. Cardiovascular: No chest pain, no lower extremity edema. No palpitations. No paroxysmal nocturnal dyspnea. No orthopnea. No lightheadedness or dizziness. No syncopal episodes. Abdominal: Reports no abdominal pain. No nausea, vomiting. No diarrhea. No constipation. No bloody or tarry stools reports loss of appetite. Genitourinary: No dysuria, increased frequency, urgency. No urinary retention. Musculoskeletal: No myalgias. No muscle weakness, no gait dysfunction, no frequent falls. No back pain. No neck pain. Integumentary: No wounds, no lesions. No rash or pruritus. No unusual bruising . No change in hair or nails. Neurologic: No aphasia. No facial droop. No change in mentation. No head injury. No headache. No paralysis. No paresthesia. Psychiatric: No depression. No anxiety. No mood swings. Endocrine: No abnormal blood sugars. No weight change. PHYSICAL EXAMINATION: General: This is a 78-year-old male laying down in bed in no apparent distress. HEENT: Head is atraumatic, normocephalic, pupils were equal round reactive to light and recommendation, extraocular muscle movement were intact, sclera nonicteric, conjunctivae were pale, mucous membranes of the mouth are somewhat dry. Neck: Supple, no JVP, normal carotid upstroke bilaterally, no lymphadenopathy. Chest: Decreased breath sounds at the bases, few rhonchi, no expiratory wheezes, no chest wall tenderness, no intercostal retractions. Heart: First heart sound is normal, second heart sound is normal there is systolic ejection murmur 2/6 located in the left sternal border. Abdomen: Soft, nontender, nondistended, positive bowel sounds. Extremities: There is no edema no calf tenderness DP +2 bilaterally. Neurologic examination: Patient is awake alert and oriented x3, cranial nerves II-12 appear grossly intact, muscle power were 5 out of 5 in upper extremities and 5 out of 5 in bilateral lower extremities, deep tendon reflexes normal bilaterally. ASSESSMENT AND PLAN: 1. Febrile neutropenia after the first cycle of azacitidine that was administered 07/21/2023 patient did receive 1 unit of packed red blood cells as an outpatient he was started on ciprofloxacin 500 mg once every day as an ou tpatient along with fluconazole 100 mg once every day and acyclovir 400 mg orally twice every day by his oncologist, patient was placed on neutropenic precautions and he was started on cefepime 2 g IV piggyback every 12 hours to broaden the spectrum of antibiotic, blood cultures were obtained still pending at the time of dictation, monitor the patient over the next 24 hours, if there is no more fever patient can be discharged home tomorrow morning. 2. Myelodysplastic syndrome status post bone marrow biopsy June 17, 2023. 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 Patient has been started on azacitidine by hematology oncology he was supposed to get his second treatment on August 18, 2023. 4. Coronary artery disease status post PCI of the LCx/obtuse marginal branch #1. Continue patient on aspirin 81 mg once every day, Plavix 75 mg once every day, continue atorvastatin 80 mg once every day, ezetimibe 10 mg once every day, patient has been followed by Dr. Hines. 5. Hypertension and hypertensive cardiovascular disease. Continue patient on lisinopril 10 mg once every day, metoprolol ER 25 mg orally once every day. 6. Mixed hyperlipidemia. Continue patient on atorvastatin 80 mg once every day, ezetimibe 10 mg once every day, monitor lipid panel, keep LDL 55-70. 7. GERD. Continue pantoprazole 40 mg once every day. 8. History of prostate cancer status post prostatectomy. 9. History of renal cell carcinoma status post right nephrectomy. 10. Anxiety disorder. Continue sertraline 200 mg orally once every day. 11. Insomnia continue trazodone 100 mg orally once at bedtime. 12. Chronic kidney disease stage IIIa. Monitor the patient CMP, avoid nephrotoxins, Hep-Lock IV. 13. DVT prophylaxis. Bilateral knee-high MACKENZIE hose, avoid Lovenox or heparin due to the patient thrombocytopenia. 14. GI prophylaxis. Continue patient on Protonix 40 mg once every day. 15. Likely home tomorrow morning. Objective - Vital Signs Vital signs: Vital Signs Temp 98.7 F 08/15/23 12:06 Pulse 73 08/15/23 12:06 Resp 17 08/15/23 12:06 BP 109/62 08/15/23 12:06 Pulse Ox 94 L 08/15/23 12:06 FiO2 Intake & Output 08/14/23 08/15/23 08/15/23 18:59 06:59 18:59 Intake Total 590 Balance 590 Intake: Oral 590 Other: # Voids 2 - Labs CBC & Chem 7: 08/15/23 07:03 08/14/23 13:19 Labs: Abnormal Lab Results - Last 24 Hours (Table) 08/15/23 Range/Units 07:03 WBC 0.5 L* (3.8-10.6) k/uL RBC 2.17 L (4.30-5.90) m/uL Hgb 7.3 L (13.0-17.5) gm/dL Hct 21.8 L (39.0-53.0) % MCV 100.8 H (80.0-100.0) fL RDW 17.7 H (11.5-15.5) % Plt Count 59 L (150-450) k/uL Microbiology - Last 24 Hours (Table) 08/13/23 22:25 Urine Culture - Final Urine,Clean Catch 08/13/23 22:05 Blood Culture - Preliminary Blood 08/13/23 21:50 Blood Culture - Preliminary Blood
--- NOTE | 2023-08-15 16:58 | P.PN ---
Subjective Progress Note Date: 08/15/23 Principal diagnosis: MDS -Afebrile, no acute events overnight -Denies any new signs or symptoms since admission, feels well Objective - Vital Signs Vital signs: Vital Signs Temp 98.7 F 08/15/23 12:06 Pulse 73 08/15/23 12:06 Resp 17 08/15/23 12:06 BP 109/62 08/15/23 12:06 Pulse Ox 94 L 08/15/23 12:06 FiO2 Intake & Output 08/14/23 08/15/23 08/15/23 18:59 06:59 18:59 Intake Total 590 Balance 590 Intake: Oral 590 Other: # Voids 2 - Constitutional General appearance: Present: cooperative, no acute distress - EENT Eyes: Present: EOMI - Respiratory Respiratory: bilateral: CTA - Cardiovascular Rhythm: regular - Gastrointestinal General gastrointestinal: Present: soft. Absent: distended, tenderness - Integumentary Integumentary Comment(s): Ecchymoses Integumentary: Present: pale. Absent: rash - Neurologic Neurologic: Present: CNII-XII intact. Absent: focal deficits - Labs CBC & Chem 7: 08/15/23 07:03 08/14/23 13:19 Labs: Abnormal Lab Results - Last 24 Hours (Table) 08/15/23 Range/Units 07:03 WBC 0.5 L* (3.8-10.6) k/uL RBC 2.17 L (4.30-5.90) m/uL Hgb 7.3 L (13.0-17.5) gm/dL Hct 21.8 L (39.0-53.0) % MCV 100.8 H (80.0-100.0) fL RDW 17.7 H (11.5-15.5) % Plt Count 59 L (150-450) k/uL Microbiology - Last 24 Hours (Table) 08/13/23 22:25 Urine Culture - Final Urine,Clean Catch 08/13/23 22:05 Blood Culture - Preliminary Blood 08/13/23 21:50 Blood Culture - Preliminary Blood - Imaging and Cardiology Chest x-ray: report reviewed, image reviewed Assessment and Plan (1) Antineoplastic chemotherapy induced pancytopenia Current Visit: Yes Status: Acute Priority: High Code(s): D61.810 - ANTINEO PLASTIC CHEMOTHERAPY INDUCED PANCYTOPENIA; T45.1X5A - ADVERSE EFFECT OF ANTINEOPLASTIC AND IMMUNOSUP DRUGS, INIT SNOMED Code(s): 987021910485528 (2) Febrile neutropenia Current Visit: Yes Status: Acute Priority: High Code(s): D70.9 - NEUTROPENIA, UNSPECIFIED; R50.81 - FEVER PRESENTING WITH CONDITIONS CLASSIFIED ELSEWHERE SNOMED Code(s): 835840582 (3) MDS (myelodysplastic syndrome) Current Visit: No Status: Acute Code(s): D46.9 - MYELODYSPLASTIC SYNDROME, UNSPECIFIED SNOMED Code(s): 015170799 Plan: Febrile neutropenia -WBC 0.5, ANC not reportable, s/p 1 cycle of vidaza from 07/21/23-07/29/23 -Urine culture negative, blood cultures negative after 24 hours -Continue empiric cefepime every 8 hours -We discussed that if blood cultures are negative after 48 hours, and is otherwise feeling well, he could be discharged from an oncology perspective -His diet can be advanced from an oncology perspective today Myelodysplastic syndrome, high risk -Status post first cycle of Vidaza days 1 through 7 completed on 07/29/2023 -Cycle 2 of treatment was due on 08/18/2023 -We will delay cycle 2 of treatment by 1 week -In addition, we will shorten the days vidaza duration from 7 days to 5 days to help reduce the risk of complications Chemotherapy-induced pancytopenia in addition to cytopenia secondary to MDS -WBC 0.5, will hold on C-GSF for now given no fevers and is clinically stable. C-GSF could potentially worsen underlying MDS and would favor avoiding this -Transfuse for hemoglobin less than 7 or if symptomatic -Transfuse for platelets less than 10,000 or if symptomatic Elena Kwon MD
[2023-08-15] MEDS: ACETAMINOPHEN TAB 325 MG TAB PO PRN (20:20)
[2023-08-16 08:23] VITALS: RESP 18
[2023-08-16 09:25] LABS: ALT 8 U/L (10-49); AST 18 U/L (14-35); Albumin 3.3 g/dL (3.8-4.9); Albumin/Globulin Ratio 1.83 Ratio (1.60-3.17); Alkaline Phosphatase 52 U/L (41-126); BUN/Creat Ratio 14.91 Ratio (12.00-20.00); Blood Urea Nitrogen 16.4 mg/dL (9.0-27.0); Carbon Dioxide 22.2 mmol/L (21.6-31.8); Chloride 109 mmol/L (96-109); Globulin 1.8 g/dL (1.6-3.3); Glucose 108 mg/dL (70-110); Potassium 4.4 mmol/L (3.5-5.5); Sodium 141 mmol/L (135-145); Total Bilirubin 0.5 mg/dL (0.3-1.2); Total Protein 5.1 g/dL (6.2-8.2)
[2023-08-16 10:17] LABS: Basophils # (A) 0.01 X 10*3/uL (0.00-0.10); Basophils % (A) 1.5 %; Eosinophils # (A) 0.01 X 10*3/uL (0.04-0.35); Eosinophils % (A) 1.5 %; HCT 21.5 % (39.6-50.0); HGB 6.9 g/dL (13.0-17.0); Immature Platelet Fraction 6.5 % (1.1-6.1); Lymphocytes # (A) 0.53 X 10*3/uL (0.90-5.00); Lymphocytes % (A) 79.1 %; MCH 32.4 pg (27.0-32.0); MCHC 32.1 g/dL (32.0-37.0); MCV 100.9 FL (80.0-97.0); Mean Platelet Volume 10.3 FL (9.5-12.2); Monocytes # (A) 0.04 X 10*3/uL (0.20-1.00); NRBC Per 100 WBC 0 X 10*3/uL (0.00-0.01); Neutrophils # (A) 0.07 X 10*3/uL (1.80-7.70); Neutrophils % (A) 10.4 %; Platelet Count 74 X 10*3/uL (140-440); RBC 2.13 X 10*6/uL (4.40-5.60); RDW 16.6 % (11.5-14.5); WBC 0.67 X 10*3/uL (4.50-10.00)
--- NOTE | 2023-08-16 12:19 | P.PN ---
Subjective Progress Note Date: 08/16/23 HISTORY OF PRESENT ILLNESS: This is a 78-year-old male with a previous medical history significant for hypertension and hypertensive cardiovascular disease, hyperlipidemia, history of coronary artery disease status post left heart catheterization that was done recently by Dr. Hines and that showed moderate CAD with significant stenosis of the obtuse marginal branch #1 and #2 but they were small vessels it was elected for the patient to be treated medically at that time, with aggressive risk factor modifications, history of chronic kidney disease stage IIIa, enlarged prostate, patient was recently diagnosed with myelodysplasia after he was referred to Dr. 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, patient already started on azacitidine cycle 1 on 07/21/2023 and the patient developed to have a significant anemia and he was seen by his hematology oncology and he was started on acyclovir 400 mg orally twice every day as well as ciprofloxacin 500 mg once every day and fluconazole 100 mg once every day, patient was brought into the emergency department at [facility] last night after he contacted his student support counselor oncologist due to his low-grade temperature, and he was seen and evaluated in the ER, and because of the febrile neutropenia he was admitted to the hospital he was started prophylactically on cefepime 2 g IV piggyback every 8 hours, blood cultures were obtained, urine was negative, patient was admitted to the hospital with hematology consultation as well. 08/14: Patient is sitting up in the chair no apparent distress, he denies any chest pain, he has no soreness in his mouth, his diet was downgraded to full liquid diet, patient has no nausea or vomiting or diarrhea, he will be kept in the hospital for another 24 hours, to check the final result of the culture continue cefepime meanwhile, monitor the patient very closely at this time, he was seen earlier by oncology, he was started on salt and soda mouthwash, continue with bilateral knee-high MACKENZIE hose, no Lovenox at this time, transfuse for hemoglobin less than 7, continue to monitor his white count as well as his platelet counts, patient appears to be in good spirits, he seems to be doing well he will likely will be discharged home tomorrow morning. 08/15: Patient does appear to have a flat affect today, his hemoglobin dropped to 6.9, he will be getting 1 unit of irradiated packed red blood cells, his platelet counts are up to 78,000, his continue to be neutropenic, monitor the patient very closely, patient would want to go home today, I told him we will check his blood count after the blood transfusion in 2 hours, if his hemoglobin is stable he can be discharged home and follow-up as an outpatient. Patient has not had a fever over the last 24 hours. The highest temperature was 100.0. Continue cefepime for now when he goes home he can go on Cipro fluconazole and acyclovir as before. REVIEW OF SYSTEMS: Constitutional: positive for documented fever, no chills, positive for night sweats. positive for weight change. generalized weakness, fatigue or lethargy. No daytime sleepiness. EENT: No headache. No blurred vision or double vision, no loss of vision. hard of Hearing, no ringing in the ears, no dizziness. No nasal drainage or congestion. No epistaxis. No sore throat. Lungs: No shortness of breath, no cough, no sputum production. No wheezing. Reports dyspnea with activity. Cardiovascular: No chest pain, no lower extremity edema. No palpitations. No paroxysmal nocturnal dyspnea. No orthopnea. No lightheadedness or dizziness. No syncopal episodes. Abdominal: Reports no abdominal pain. No nausea, vomiting. No diarrhea. No constipation. No bloody or tarry stools reports loss of appetite. Genitourinary: No dysuria, increased frequency, urgency. No urinary retention. Musculoskeletal: No myalgias. No muscle weakness, no gait dysfunction, no frequent falls. No back pain. No neck pain. Integumentary: No wounds, no lesions. No rash or pruritus. No unusual bruising. No change in hair or nails. Neurologic: No aphasia. No facial droop. No change in mentation. No head injury. No headache. No paralysis. No paresthesia. Psychiatric: No depression. No anxiety. No mood swings. Endocrine: No abnormal blood sugars. No weight change. PHYSICAL EXAMINATION: General: This is a 78-year-old male laying down in bed in no apparent distress. HEENT: Head is atraumatic, normocephalic, pupils were equal round reactive to light and recommendation, extraocular muscle movement were intact, sclera nonicteric, conjunctivae were pale, mucous membranes of the mouth are somewhat dry. Neck: Supple, no JVP, normal carotid upstroke bilaterally, no lymphadenopathy. Chest: Decreased breath sounds at the bases, few rhonchi, no expiratory wheezes, no chest wall tenderness, no intercostal retractions. Heart: First heart sound is normal, second heart sound is normal there is systolic ejection murmur 2/6 located in the left sternal border. Abdomen: Soft, nontender, nondistended, positive bowel sounds. Extremities: There is no edema no calf tenderness DP +2 bilaterally. Neurologic examination: Patient is awake alert and oriented x3, cranial nerves II-12 appear grossly intact, muscle power were 5 out of 5 in upper extremities and 5 out of 5 in bilateral lower extremities, deep tendon reflexes normal bilaterally. ASSESSMENT AND PLAN: 1. Febrile neutropenia after the first cycle of azacitidine that was admin istered 07/21/2023 . Patient is maintained on cefepime 2 g every back every 8 hours, he has no fever over the last 24 hours, however the patient hemoglobin did drop to 6.9, he will be getting 1 unit of irradiated packed red blood cells, and check his hemoglobin posttransfusion in 2 hours, if his hemoglobin is stable he can be discharged home and follow-up as an outpatient. 2. Myelodysplastic syndrome status post bone marrow biopsy June 17, 2023. 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 Patient has been started on azacitidine by hematology oncology he was supposed to get his second treatment on August 18, 2023. 4. Coronary artery disease status post PCI of the LCx/obtuse marginal branch #1. Continue patient on aspirin 81 mg once every day, Plavix 75 mg once every day, continue atorvastatin 80 mg once every day, ezetimibe 10 mg once every day, patient has been followed by Dr. Hines. 5. Hypertension and hypertensive cardiovascular disease. Continue patient on lisinopril 10 mg once every day, metoprolol ER 25 mg orally once every day. 6. Mixed hyperlipidemia. Continue patient on atorvastatin 80 mg once every day, ezetimibe 10 mg once every day, monitor lipid panel, keep LDL 55-70. 7. GERD. Continue pantoprazole 40 mg once every day. 8. History of prostate cancer status post prostatectomy. 9. History of renal cell carcinoma status post right nephrectomy. 10. Anxiety disorder. Continue sertraline 200 mg orally once every day. 11. Insomnia continue trazodone 100 mg orally once at bedtime. 12. Chronic kidney disease stage IIIa. Monitor the patient CMP, avoid nephrotoxins, Hep-Lock IV. 13. DVT prophylaxis. Bilateral knee-high MACKENZIE hose, avoid Lovenox or heparin due to the patient thrombocytopenia. 14. GI prophylaxis. Continue patient on Protonix 40 mg once every day. 15. Patient can be discharged home after blood transfusion. Objective - Vital Signs Vital signs: Vital Signs Temp 99.5 F 08/16/23 07:30 Pulse 83 08/16/23 07:30 Resp 18 08/16/23 07:30 BP 95/56 08/16/23 07:30 Pulse Ox 97 08/16/23 07:30 FiO2 Intake & Output 08/15/23 08/16/23 08/16/23 18:59 06:59 18:59 Intake Total 590 Balance 590 Intake: Oral 590 Other: # Voids 3 2 - Labs CBC & Chem 7: 08/16/23 04:00 08/16/23 04:00 Labs: Abnormal Lab Results - Last 24 Hours (Table) 08/16/23 08/16/23 Range/Units 04:00 04:00 WBC 0.67 A* (4.50-10.00) X 10*3/uL RBC 2.13 L (4.40-5.60) X 10*6/uL Hgb 6.9 A* (13.0-17.0) g/dL Hct 21.5 L (39.6-50.0) % MCV 100.9 H (80.0-97.0) FL MCH 32.4 H (27.0-32.0) pg RDW 16.6 H (11.5-14.5) % Plt Count 74 L (140-440) X 10*3/uL Neutrophils # 0.07 A* (1.80-7.70) X 10*3/uL Lymphocytes # 0.53 L (0.90-5.00) X 10*3/uL Monocytes # 0.04 L (0.20-1.00) X 10*3/uL Eosinophils # 0.01 L (0.04-0.35) X 10*3/uL Immature Plt Fraction 6.5 H (1.1-6.1) % Calcium 8.0 L (8.7-10.3) mg/dL ALT 8 L (10-49) U/L Total Protein 5.1 L (6.2-8.2) g/dL Albumin 3.3 L (3.8-4.9) g/dL Microbiology - Last 24 Hours (Table) 08/13/23 22:05 Blood Culture - Preliminary Blood 08/13/23 21:50 Blood Culture - Preliminary Blood 08/14/23 13:19 Blood Culture - Preliminary Blood 08/13/23 22:25 Urine Culture - Final Urine,Clean Catch
--- NOTE | 2023-08-16 12:21 | P.DS ---
Providers Date of admission: 08/14/23 04:47 Expected date of discharge: 08/16/23 Attending physician: Daniel Copeland Consults: 08/14/23 04:47 Consult Physician Routine Consulting Provider: Dickson Wheeler Consult Reason/Comments: fever. Neutropenia Do you want consulting provider notified?: Already Contacted Primary care physician: Daniel Copeland [facility] Course: HISTORY OF PRESENT ILLNESS: This is a 78-year-old male with a previous medical history significant for hypertension and hypertensive cardiovascular disease, hyperlipidemia, history of coronary artery disease status post left heart catheterization that was done recently by Dr. Hines and that showed moderate CAD with significant stenosis of the obtuse marginal branch #1 and #2 but they were small vessels it was elected for the patient to be treated medically at that time, with aggressive risk factor modifications, history of chronic kidney disease stage IIIa, enlarged prostate, patient was recently diagnosed with myelodysplasia after he was referred to Dr. 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 08/14: Patient is sitting up in the chair no apparent distress, he denies any chest pain, he has no soreness in his mouth, his diet was downgraded to full liquid diet, patient has no nausea or vomiting or diarrhea, he will be kept in the hospital for another 24 hours, to check the final result of the culture continue cefepime meanwhile, monitor the patient very closely at this time, he was seen earlier by oncology, he was started on salt and soda mouthwash, continue with bilateral knee-high MACKENZIE hose, no Lovenox at this time, transfuse for hemoglobin less than 7, continue to monitor his white count as well as his platelet counts, patient appears to be in good spirits, he seems to be doing well he will likely will be discharged home tomorrow morning. 08/15: Patient does appear to have a flat affect today, his hemoglobin dropped to 6.9, he will be getting 1 unit of irradiated packed red blood cells, his platelet counts are up to 78,000, his continue to be neutropenic, monitor the patient very closely, patient would want to go home today, I told him we will check his blood count after the blood transfusion in 2 hours, if his hemoglobin is stable he can be discharged home and follow-up as an outpatient. Patient has not had a fever over the last 24 hours. The highest temperature was 100.0. Continue cefepime for now when he goes home he can go on Cipro fluconazole and acyclovir as before. Discharge diagnoses: 1. Febrile neutropenia after the first cycle of azacitidine that was administered 07/21/2023 . 2. Myelodysplastic syndrome status post bone marrow biopsy June 17, 2023. 4. Coronary artery disease status post PCI of the LCx/obtuse marginal branch #1. 5. Hypertension and hypertensive cardiovascular disease. 6. Mixed hyperlipidemia. 7. GERD. 8. History of prostate cancer status post prostatectomy. 9. History of renal cell carcinoma status post right nephrectomy. 10. Anxiety disorder. 11. Insomnia . 12. Chronic kidney disease stage IIIa. Patient Condition at Discharge: Stable Plan - Discharge Summary Discharge Rx Participant: Yes New Discharge Prescriptions: No Action Metoprolol Succinate (ER) [Toprol Xl] 25 mg PO QAM Ezetimibe [Zetia] 10 mg PO QAM Omeprazole 20 mg PO BID Pramipexole [Mirapex] 0.125 mg PO HS Sertraline [Zoloft] 200 mg PO DAILY lisinopriL [Zestril] 10 mg PO QAM Atorvastatin [Lipitor] 80 mg PO HS Aspirin 81 mg PO QAM traZODone HCL 100 mg PO HS Melatonin 3 mg PO HS Cholecalciferol [Vitamin D3 (10 Mcg = 400 Iu)] 10 mg PO DAILY Clopidogrel Bisulfate [Clopidogrel] 75 mg PO QAM Prazosin HCl 2 mg PO HS Discharge Medication List Aspirin 81 mg PO QAM 02/25/22 [History] Atorvastatin [Lipitor] 80 mg PO HS 02/25/22 [History] Ezetimibe [Zetia] 10 mg PO QAM 02/25/22 [History] Melatonin 3 mg PO HS 02/25/22 [History] Metoprolol Succinate (ER) [Toprol Xl] 25 mg PO QAM 02/25/22 [History] Omeprazole 20 mg PO BID 02/25/22 [History] Pramipexole [Mirapex] 0.125 mg PO HS 02/25/22 [History] Sertraline [Zoloft] 200 mg PO DAILY 02/25/22 [History] lisinopriL [Zestril] 10 mg PO QAM 02/25/22 [History] traZODone HCL 100 mg PO HS 02/25/22 [History] Cholecalciferol [Vitamin D3 (10 Mcg = 400 Iu)] 10 mg PO DAILY 03/31/23 [History] Clopidogrel Bisulfate [Clopidogrel] 75 mg PO QAM 03/31/23 [History] Prazosin HCl 2 mg PO HS 08/14/23 [History] Follow up Appointment(s)/Referral(s): Daniel Copeland MD [Primary Care Provider] - 1-2 days
[2023-08-16 17:35] VITALS: BP 100/58; PULSE 74; TEMP 98.7
== END 2023-08-16 18:41 | disposition home or self-care (01) | DRG 809 ==
LOC: EC 20:21 → 5NMEDONC 08-14 04:47
PROVIDERS: ADMIT Internal Medicine; ATTEND Internal Medicine
DX: D61.810 Antineoplastic chemotherapy induced pancytopenia (principal); D84.9 Immunodeficiency, unspecified; D46.9 Myelodysplastic syndrome, unspecified; E78.2 Mixed hyperlipidemia; F32.A Depression, unspecified; F43.10 Post-traumatic stress disorder, unspecified; G47.00 Insomnia, unspecified; I13.10 Hypertensive heart and chronic kidney disease without heart failure, with stage 1 through stage 4 chronic kidney disease, or unspecified chronic kidney disease; I25.10 Atherosclerotic heart disease of native coronary artery without angina pectoris; K21.9 Gastro-esophageal reflux disease without esophagitis; K43.9 Ventral hernia without obstruction or gangrene; N18.31 Chronic kidney disease, stage 3a; G47.33 Obstructive sleep apnea (adult) (pediatric); N40.0 Benign prostatic hyperplasia without lower urinary tract symptoms; R50.81 Fever presenting with conditions classified elsewhere; T45.1X5A Adverse effect of antineoplastic and immunosuppressive drugs, initial encounter; Z79.02 Long term (current) use of antithrombotics/antiplatelets; Z79.82 Long term (current) use of aspirin; Z79.899 Other long term (current) drug therapy; Z85.46 Personal history of malignant neoplasm of prostate; Z85.528 Personal history of other malignant neoplasm of kidney; Z85.828 Personal history of other malignant neoplasm of skin; Z87.891 Personal history of nicotine dependence; Z90.5 Acquired absence of kidney; Z90.79 Acquired absence of other genital organ(s); Z98.61 Coronary angioplasty status; Z11.52 Encounter for screening for COVID-19; Z28.21 Immunization not carried out because of patient refusal; Z57.4 Occupational exposure to toxic agents in agriculture
CPT/HCPCS: 36415; 71046; 80053; 81003; 83605; 85025; 86850; 86900; 86901; 86920; 87040; 87086; 87636; 87651; 96361; 96365; 99285

== ENCOUNTER → 2023-08-29 | Outpatient (CLI) | payer MEDICARE ==
--- NOTE | 2023-08-29 12:25 | CT ---
EXAMINATION TYPE: CT brain wo con CT DLP: 1195 mGycm, Automated exposure control for dose reduction was used. DATE OF EXAM: 08/29/2023 12:20 PM COMPARISON: None recent.. CLINICAL INDICATION:Male, 78 years old with history of G45.9 TRANSIENT CEREBRAL ISCHEMIC ATTACK, unsp ecified. Memory loss x 3 days, weakness, dizziness TECHNIQUE: Brain: Axial CT images of the brain were obtained with coronal and sagittal reformats created and rev iewed. Contrast used: None. Oral contrast used: None. FINDINGS: Brain: Extra-axial spaces: No abnormal extra-axial fluid collections. Ventricular system: Within normal limits Cerebral parenchyma: No acute intraparenchymal hemorrhage or mass effect. The pierce-white junction is well differentiated. Cerebellum: Unremarkable. Mass effect: No evidence of midline shift. Intracranial vasculature: unremarkable Soft tissues: Normal. Calvarium/osseous structures: No depressed skull fracture. Paranasal sinuses and mastoid air cells: Mild scattered paranasal sinus disease. Visualized orbits: Orbital contents are intact. IMPRESSION: No acute intracranial process.
== END ==
LOC: RADCTMAIN 11:59
PROVIDERS: ATTEND Internal Medicine
DX: G45.9 Transient cerebral ischemic attack, unspecified (principal)
CPT/HCPCS: 70450

== ENCOUNTER → 2023-09-30 | Outpatient (CLI) | payer OTHER | LOC: CPPFTMAIN 08:21 | PROVIDERS: ATTEND Family Medicine | DX: D46.9 Myelodysplastic syndrome, unspecified (principal); I10 Essential (primary) hypertension; E78.5 Hyperlipidemia, unspecified; I25.10 Atherosclerotic heart disease of native coronary artery without angina pectoris; R73.01 Impaired fasting glucose; G62.9 Polyneuropathy, unspecified; C61 Malignant neoplasm of prostate; J44.9 Chronic obstructive pulmonary disease, unspecified; N52.9 Male erectile dysfunction, unspecified; F43.10 Post-traumatic stress disorder, unspecified; E55.9 Vitamin D deficiency, unspecified; Z85.528 Personal history of other malignant neoplasm of kidney; Z85.828 Personal history of other malignant neoplasm of skin; Z79.899 Other long term (current) drug therapy | CPT/HCPCS: 94060; 94726; 94729 ==

== ENCOUNTER → 2023-09-30 | Outpatient (CLI) | payer OTHER ==
--- NOTE | 2023-09-30 12:55 | CA ---
Transthoracic Echo Report Name: Delroy Zabala Age: 78 Gender: M : 1945 Exam Date: 09/30/2023 09:17 Exam Location: [facility] Ht (in): 70 Wt (lb): 167 Ordering Physician: Sean Suresh DO Attending/Referring Phys: Rimma Hughes [facility] Dicer Machine Operator Breanna Tidwell RDCS Procedure CPT: Indications: D46.9 MYELODYSPLASTIC SYNDROME, UNSPECIFIED Cardiac Hx: Technical Quality: Fair Contrast 1: Total Dose (mL): Contrast 2: Total Dose (mL): MEASUREMENTS (Male / Female) Normal Values 2D ECHO LV Diastolic Diameter PLAX 4.9 cm 4.2 - 5.9 / 3.9 - 5.3 cm LV Systolic Diameter PLAX 3.6 cm IVS Diastolic Thickness 1.3 cm 0.6 - 1.0 / 0.6 - 0.9 cm LVPW Diastolic Thickness 1.5 cm 0.6 - 1.0 / 0.6 - 0.9 cm LV Relative Wall Thickness 0.6 RV Internal Dim ED PLAX 3.4 cm LA Volume 65.1 cm??? 18 - 58 / 22 - 52 cm??? LA Volume Index 33.6 cm???/m??? 16 - 28 cm???/m??? M-MODE Aortic Root Diameter MM 3.7 cm LA Systolic Diameter MM 4.6 cm LA Ao Ratio MM 1.3 AV Cusp Separation MM 2.5 cm DOPPLER AV Peak Velocity 102.8 cm/s AV Peak Gradient 4.2 mmHg AV Mean Velocity 68.0 cm/s AV Mean Gradient 2.1 mmHg AV Velocity Time Integral 20.7 cm AI Peak Velocity 430.7 cm/s AI Peak Gradient 74.2 mmHg AI Pressure Half Time 729.1 ms LVOT Peak Velocity 79.4 cm/s LVOT Peak Gradient 2.5 mmHg LVOT Velocity Time Integral 17.4 cm MV Area PHT 3.6 cm??? Mitral E Point Velocity 46.4 cm/s Mitral A Point Velocity 76.3 cm/s Mitral E to A Ratio 0.6 MV Deceleration Time 212.4 ms MV E' Velocity 6.4 cm/s Mitral E to MV E' Ratio 7.2 TR Peak Velocity 328.2 cm/s TR Peak Gradient 43.1 mmHg Right Atrial Pressure 20.0 mmHg Pulmonary Artery Systolic Pressu 63.1 mmHg Right Ventricular Systolic Press 63.1 mmHg FINDINGS Left Ventricle Mildly increased left ventricular wall thickness. Left ventricular cavity size normal. Normal left ventricular systolic function with no obvious regional wall motion abnormalities. Left ventricular ejection fraction is estimated at 55-60 %. Right Ventricle Mild right ventricular dilatation. Severe pulmonary hypertension. Right ventricular systolic pressure estimated at 63 mm hg. Right Atrium Normal right atrial size. Left Atrium Mildly increased left atrial volume. Mitral Valve Structurally normal mitral valve. Axzd-ec-stnwrpru mitral regurgitation. Aortic Valve Trileaflet aortic valve. No aortic stenosis. Mild aortic regurgitation. Tricuspid Valve Structurally normal tricuspid valve. Olii-vb-engneiwq tricuspid regurgitation. Pulmonic Valve Structurally normal pulmonic valve. Mild pulmonic regurgitation. Pericardium No pericardial effusion. Aorta Normal size aortic root and proximal ascending aorta. CONCLUSIONS LVH with preserved systolic function Thickened pericardium Previewed by: Dr. Goyo Milian MD (Electronically Signed) Final Date: 30 September 2023 12:54
== END | disposition home or self-care (01) ==
LOC: RADECHMAIN 08:25
PROVIDERS: ATTEND Family Medicine
DX: D46.9 Myelodysplastic syndrome, unspecified (principal)
CPT/HCPCS: 93306

== ENCOUNTER → 2023-10-09 | Outpatient (CLI) | payer MEDICARE ==
--- NOTE | 2023-10-09 14:40 | MR ---
EXAMINATION TYPE: MR brain wo/w con DATE OF EXAM: 10/09/2023 2:20 PM COMPARISON: NONE HISTORY: TIA. CONTRAST: Patient received 7.5 mL intravenous Gadavist gadolinium contrast. Multiplanar and multispin-echo imaging of the brain was performed . Pre and post contrast enhanced i mages are obtained. The ventricles, basal cisterns and sulci overlying the cerebral convexities are mildly enlarged. There is evidence of mild periventricular white matter ischemic demyelination. Remote deep white matter insults are also noted. No acute edema is seen on diffusion weighted imaging. There is no evidence for midline shift or mass effect. Acute intracranial hemorrhage or extra-axial collection is not evident. No enhancing lesions are seen. The paranasal sinuses and mastoid air cells are well-aerated. IMPRESSION: Age-related atrophic and chronic small vessel ischemic change. No acute intracranial process at this time. No enhancing lesions are seen.
== END | disposition home or self-care (01) ==
LOC: RADMRIMAIN 13:07
PROVIDERS: ATTEND Internal Medicine
DX: G45.9 Transient cerebral ischemic attack, unspecified (principal); I67.82 Cerebral ischemia
CPT/HCPCS: 70553; A9585

== ENCOUNTER 2023-11-14 06:18 | Day surgery (SDC) | payer MEDICARE ==
[2023-11-11 11:22] VITALS: BMI 24.3
[~2023-11-14 06:18] MED LIST changes: -ALPRAZolam 0.25 MG TAB PO PRN; -ALPRAZolam 0.5 MG TAB PO PRN; -ASPIRIN 325 MG TAB PO STA; -HEPARIN SODIUM,PORCINE (1 ML) 2,500 UNIT in SODIUM CHLORIDE 0.9% 250 ML IRRIGATION PRN; -HEPARIN SODIUM,PORCINE 10,000 UNIT in SODIUM CHLORIDE 0.9% 1,000 ML IRRIGATION PRN; +LIDOCAINE 1% (10MG/ML) FOR IV START INTRADERMA PRN; -NITROGLYCERIN SL TABS 0.4 MG TAB SUBLINGUAL PRN; -SODIUM CHLORIDE 0.9% 1,000 ML in EMPTY BAG 1 BAG IV SCH
[2023-11-14 06:48] VITALS: RESP 16; TEMP 97.1
[2023-11-14] MEDS: LACTATED RINGERS 1,000 ML IV SCH (06:58)
[2023-11-14] MEDS: IV FLUID CONTINUATION 1,000 ML IV ONE (06:59)
[2023-11-14] MEDS ORDERED: PROPOFOL 10 MG/ML 20 ML VIAL IV ONE (07:00)
[2023-11-14] MEDS: LIDOCAINE 2% INJ 20 MG/ML SQ ONE (07:13)
[2023-11-14 07:44] LABS: Anisocytosis Slight; Basophils % (A) 0 %; Eosinophils # (A) 0.2 k/uL (0-0.7); Eosinophils % (A) 7 %; HCT 31.5 % (39.0-53.0); HGB 10.8 gm/dL (13.0-17.5); Lymphocytes # (A) 1.1 k/uL (1.0-4.8); Lymphocytes % (A) 33 %; MCH 34.3 pg (25.0-35.0); MCHC 34.2 g/dL (31.0-37.0); MCV 100.4 fL (80.0-100.0); Macrocytosis Slight; Mean Platelet Volume 8.3; Monocytes # (A) 0.2 k/uL (0-1.0); Monocytes % (A) 7 %; Neutrophils # (A) 1.8 k/uL (1.3-7.7); Neutrophils % (A) 52 %; Platelet Count 113 k/uL (150-450); RBC 3.13 m/uL (4.30-5.90); RDW 17.6 % (11.5-15.5); Reticulocyte % 2.6 % (0.5-2.0); WBC 3.5 k/uL (3.8-10.6)
[2023-11-14 08:00] VITALS: BP 122/61; PULSE 51
--- NOTE | 2023-11-14 08:00 | OP ---
OPERATIVE REPORT DATE OF SERVICE : PROCEDURE PERFORMED: Bone marrow biopsy with local and general sedation. PREOPERATIVE DIAGNOSIS: MDS. POSTOPERATIVE DIAGNOSIS: MDS. DESCRIPTION OF PROCEDURE: After being placed in the left lateral decubitus position, general anesthesia was administered. The posterior superior iliac spine followed by palpation of posterior iliac crest was noted. The area was anesthestized 3 swabs of Betadine, 3 swabs of alcohol followed by application of a sterile drape. Approximately 10 mL of 1% local lidocaine was applied to the periosteum. A 0.3 cm incision was then made into the subcutaneous tissue. A 4-inch Jamshidi needle was advanced through the periosteum then through into the bone marrow with aspiration of 18 mL of aspirate. Approximately 1-cm core sample was then obtained. Mr. Zabala tolerated the procedure without any complications and less than 1 mL of blood loss. He was returned to the postoperative area in stable condition. Samples obtained will be sent for morphology, FISH, cytogenetics, and NGS, and will follow up on the results in clinic. MMODL / IJN: [id number] /
== END 2023-11-14 08:40 | disposition home or self-care (01) ==
LOC: OR 06:18
PROVIDERS: ATTEND Internal Medicine
DX: D46.A Refractory cytopenia with multilineage dysplasia (principal); D61.810 Antineoplastic chemotherapy induced pancytopenia; D53.9 Nutritional anemia, unspecified; D69.6 Thrombocytopenia, unspecified; D72.819 Decreased white blood cell count, unspecified; I12.9 Hypertensive chronic kidney disease with stage 1 through stage 4 chronic kidney disease, or unspecified chronic kidney disease; N18.9 Chronic kidney disease, unspecified; D63.1 Anemia in chronic kidney disease; I25.10 Atherosclerotic heart disease of native coronary artery without angina pectoris; Z95.5 Presence of coronary angioplasty implant and graft; E78.5 Hyperlipidemia, unspecified; J44.9 Chronic obstructive pulmonary disease, unspecified; Z87.891 Personal history of nicotine dependence; Z79.82 Long term (current) use of aspirin; Z79.899 Other long term (current) drug therapy; Z79.02 Long term (current) use of antithrombotics/antiplatelets
CPT/HCPCS: 85025; 85045; 38222; J2001; J2704

== ENCOUNTER 2023-12-30 10:56 | Emergency (ER) | payer OTHER, MEDICARE ==
[2023-12-30 11:04] VITALS: TEMP 98
--- NOTE | 2023-12-30 11:05 | ED ---
Fall HPI - General Source: patient, RN notes reviewed Mode of arrival: ambulatory Limitations: no limitations <Keanu Mckeon - Last Filed: 12/30/23 11:04> - General Source: patient, RN notes reviewed Mode of arrival: ambulatory Limitations: no limitations - History of Present Illness MD Complaint: fall <Nicole Shields - Last Filed: 12/30/23 14:10> - General Chief Complaint: Fall Stated Complaint: Fall on thinners Time Seen by Provider: 12/30/23 11:04 - History of Present Illness Initial Comments: Quick note: 78-year-old male presented to ER with a chief complaint of fall from standing. Patient states 2 days ago he fell down 1 step pain in the back of his head. He denies loss of consciousness. Patient is on Plavix. He does state he missed the step 1 walking down it. He also is complaining of right sided rib discomfort. Denies any other injuries or complaints. (Keanu Mckeon) This is a 78-year-old male who presents to the emergency department for a fall. States that 2 days ago he was using the stairs and missed a step when walking down it, causing him to trip and fall. He hit the back of his head and right rib cage in the process. States that the right rib cage does cause some pain when trying to breathe. Currently taking Tylenol without much relief. Denies any loss of consciousness. He is on Plavix. (Nicole Shields) - Related Data Home Medications Medication Instructions Recorded Confirmed Aspirin 81 mg PO QAM 02/25/22 11/14/23 Atorvastatin [Lipitor] 80 mg PO HS 02/25/22 11/14/23 Ezetimibe [Zetia] 10 mg PO QAM 02/25/22 11/14/23 Melatonin 3 mg PO HS 02/25/22 11/14/23 Metoprolol Succinate (ER) [Toprol 25 mg PO QAM 02/25/22 11/14/23 XL] Omeprazole 20 mg PO HS 02/25/22 11/14/23 Pramipexole [Mirapex] 0.125 mg PO HS 02/25/22 11/14/23 Sertraline [Zoloft] 100 mg PO BID 02/25/22 11/14/23 lisinopriL [Zestril] 10 mg PO QAM 02/25/22 11/14/23 traZODone HCL 100 mg PO HS 02/25/22 11/14/23 Cholecalciferol [Vitamin D3 (10 10 mg PO DAILY 03/31/23 11/14/23 Mcg = 400 Iu)] Clopidogrel Bisulfate [Clopidogrel] 75 mg PO QAM 03/31/23 11/14/23 Prazosin HCl [Minipress] 2 mg PO HS 08/14/23 11/14/23 Cyanocobalamin (Vitamin B-12) 1,000 mcg PO DAILY 11/11/23 11/14/23 [Vitamin B-12] Ferrous Sulfate [Iron] 325 mg PO DAILY 11/11/23 11/14/23 Previous Rx's Medication Instructions Recorded Cyclobenzaprine [Flexeril] 5 mg PO TID PRN #30 tablet 12/30/23 Lidocaine 5% Patch [Lidoderm 5% 1 patch TOPICAL DAILY PRN #30 patch 12/30/23 Patch] Allergies Allergy/AdvReac Type Severity Reaction Status Date / Time No Known Allergies Allergy Verified 12/30/23 11:04 Review of Systems ROS Other: All systems not noted in ROS Statement are negative. <Keanu Mckeon - Last Filed: 12/30/23 11:04> ROS Other: All systems not noted in ROS Statement are negative. <Nicole Shields - Last Filed: 12/30/23 14:10> ROS Statement: Those systems with pertinent positive or pertinent negative responses have been documented in the HPI. Past Medical History Past Medical History: Blood Disorder, Coronary Artery Disease (CAD), Cancer, Chest Pain / Angina, Hyperlipidemia, Hypertension, Renal Disease Additional Past Medical History / Comment(s): PAROXYSMAL ATRIAL TACHYCARDIA, HX RENAL, PROSTATE AND SKIN CANCER ALL WITH SURGERY, myelodysplastic syndrome History of Any Multi-Drug Resistant Organisms: None Reported Past Surgical History: Heart Catheterization, Heart Catheterization With Stent, Prostate Surgery Additional Past Surgical History / Comment(s): RT NEPHRECTOMY IN 1991, PROSTATECTOMY 2009, SKIN CANCER REMOVED LT ARM, LT HAND FINGERS REATTACHED, COLONOSCOPY, BILAT CATARACTS REMOVED WITH LENS IMPLANTS Past Anesthesia/Blood Transfusion Reactions: No Reported Reaction Date of Last Stent Placement:: 2021 Past Psychological History: Anxiety, Depression, PTSD Smoking Status: Former smoker Past Alcohol Use History: None Reported Past Drug Use History: None Reported - Past Family History Father Family Medical History: Cancer Mother Family Medical History: Cancer <Keanu Mckeon - Last Filed: 12/30/23 11:04> General Exam Limitations: no limitations <Keanu Mckeon - Last Filed: 12/30/23 11:04> Limitations: no limitations General appearance: alert, in no apparent distress Head exam: Present: atraumatic, normocephalic, normal inspection Eye exam: Present: normal appearance, PERRL, EOMI. Absent: scleral icterus, conjunctival injection, periorbital swelling Respiratory exam: Present: normal lung sounds bilaterally. Absent: respiratory distress, wheezes, rales, rhonchi, stridor Cardiovascular Exam: Present: regular rate, normal rhythm, normal heart sounds. Absent: systolic murmur, diastolic murmur, rubs, gallop, clicks Neurological exam: Present: alert, oriented X3, CN II-XII intact Psychiatric exam: Present: normal affect, normal mood Skin exam: Present: warm, dry, intact, normal color. Absent: rash <Nicole Shields - Last Filed: 12/30/23 14:10> - General Exam Comments Initial Comments: Visual Physical Exam Vital signs reviewed General: Well-appearing, nontoxic, no acute distress. Head: Normocephalic, atraumatic Eyes: PERRLA, EOMI ENT: Airway patent Chest: Nonlabored breathing Skin: No visual rash, normal skin tone Neuro: Alert and oriented 3 Musculoskeletal: No gross abnormalities (Keanu Mckeon) Course Vital Signs 12/30/23 12/30/23 11:01 12:22 Temperature 98 F Pulse Rate 68 66 Respiratory 20 18 Rate Blood Pressure 138/78 109/64 O2 Sat by Pulse 98 96 Oximetry Medical Decision Making <Keanu Mckeon - Last Filed: 12/30/23 11:04> - Radiology Data Radiology results: report reviewed, image reviewed <Nicole Shields - Last Filed: 12/30/23 14:10> - Medical Decision Making I performed the quick note portion of this chart. Electronically signed by Keanu Mckeon PA-C (Keanu Mckeon) This is a 78-year-old male who presents to the emergency department for a fall. Was pt. sent in by a medical professional or institution? @ -No Did you speak to anyone other than the patient for history? @ -No Did you review nursing and triage notes? @ -Yes, and I agree, it is accurate with regards to the patient's symptoms. Were old charts reviewed? @ -No Differential Diagnosis? @ -Differential Diagnosis Head Injury: Contusion, hematoma, intracranial hemorrhage, skull fracture, whiplash, concussion, this is not meant to be an all-inclusive list. EKG interpreted by me (3pts min.)? @ -Not obtained X-rays interpreted by me (1pt min.)? @ -X-ray of the chest and right rib cage obtained. My interpretation identifies no rib fractures. CT interpreted by me (1pt min.)? @ -Computed tomography scan of the brain and c-spine obtained. My interpretation identifies no evidence of an acute intracranial hemorrhage, skull fracture, or cervical spine fracture. U/S interpreted by me (1pt. min.)? @ -Not obtained What testing was considered but not performed? (CT, X-rays, U/S, labs)? Why? @ -None What meds were considered but not given? Why? @ -None Did you discuss the management of the patient with other professionals? @ -No Did you reconcile home meds? @ -No Was smoking cessation discussed for >3mins.? @ -No Was critical care preformed (if so, how long)? @ -No Were there social determinants of health that impacted care today? How? (Homelessness, low income, unemployed, alcoholism, drug addiction, transpor tation, low edu. Level, literacy, decrease access to med. care, long term, rehab)? @ -No Was there de-escalation of care discussed even if they declined? (Discuss DNR or withdrawal of care, Hospice)? @ -No What co-morbidities impacted this encounter? (DM, HTN, Smoking, COPD, CAD, Cancer, CVA, Hep., AIDS, mental health diagnosis, sleep apnea, morbid obesity)? @ -None Was patient admitted / discharged? @ -Discharged. CT scan of the brain and C-spine obtained revealing no acute process. X-ray of the chest and right rib cage obtained revealing no acute injury. Findings reviewed with the patient. Lidocaine patch was applied but he otherwise declined any pain medication in the emergency department. He was given a prescription for Flexeril and lidocaine patches. Advised he make sure he takes several deep breaths an hour despite the pain to reduce the risk of developing a secondary pneumonia. Otherwise advised he follow-up with his PCP. Patient discharged home in stable condition. Case discussed with ED attending Dr. Sierra. Return precautions reviewed in depth, the patient is instructed to return to the emergency department with any new, worsening, or concerning symptoms. Patient verbalized understanding. Undiagnosed new problem with uncertain prognosis? @ -None Drug Therapy requiring intensive monitoring for toxicity (Heparin, Nitro, Insulin, Cardizem)? @ -None Were any procedures done? @ -None Diagnosis/symptom? @ -Fall, head injury, right rib contusion Acute, or Chronic, or Acute on Chronic? @ -Acute Uncomplicated (without systemic symptoms) or Complicated (systemic symptoms)? @ -Uncomplicated Side effects of treatment? @ -None Exacerbation, Progression, or Severe Exacerbation] @ -Not applicable Poses a threat to life or bodily function? @ -No (Nicole Shields) Disposition <Keanu Mckeon - Last Filed: 12/30/23 11:04> Is patient prescribed a controlled substance at d/c from ED?: No Time of Disposition: 12:14 <Nicole Shields - Last Filed: 12/30/23 14:10> Clinical Impression: Fall, Head injury, Contusion of rib on right side Disposition: HOME SELF-CARE Instructions (If sedation given, give patient instructions): Rib Contusion (ED) Additional Instructions: Return to the emergency department with any new, worsening, or concerning symptoms. Continue to take Tylenol as needed for pain relief. You can try taking the Flexeril, a muscle relaxant, up to 3 times daily. Be aware that this may make you drowsy. You can also apply the lidocaine patches daily. Make sure you take several deep breaths an hour despite the pain to reduce the risk of developing a secondary pneumonia. Follow up with your primary care provider in 1-2 days. Prescriptions: Cyclobenzaprine [Flexeril] 5 mg PO TID PRN #30 tablet PRN Reason: Pain Lidocaine 5% Patch [Lidoderm 5% Patch] 1 patch TOPICAL DAILY PRN #30 patch PRN Reason: Pain Referrals: Daniel Copeland MD [Primary Care Provider] - 1-2 days
--- NOTE | 2023-12-30 11:35 | CT ---
EXAMINATION TYPE: CT brain wo con CT DLP: 1256.4 mGycm, Automated exposure control for dose reduction was used. DATE OF EXAM: 12/30/2023 11:22 AM COMPARISON: Prior CT Brain from 08/29/2023, MR brain 10/09/2023 . CLINICAL INDICATION:Male, 78 years old with history of fall with head injury on plavix, Fall with hea d injury on Plavix TECHNIQUE: Brain: Multiple axial CT images of the brain were obtained without IV contrast. . Coronal and sagitta l reformats reviewed. FINDINGS: Brain: Extra-axial spaces: No abnormal extra-axial fluid collections. Ventricular system: Within normal limits Cerebral parenchyma: Cerebral atrophy. No acute intraparenchymal hemorrhage or mass effect. The pierce -white junction is well differentiated. Cerebellum: Unremarkable. Mass effect: No evidence of midline shift. Intracranial vasculature: Atherosclerotic calcifications of the intracranial vessels. Soft tissues: Normal. Calvarium/osseous structures: No depressed skull fracture. Paranasal sinuses and mastoid air cells: Clear Visualized orbits: Bilateral aphakia IMPRESSION: 1. No acute intracranial process. 2. Nonspecific white matter changes, likely secondary to chronic small vessel ischemic disease.
--- NOTE | 2023-12-30 11:37 | XR ---
EXAMINATION TYPE: XR ribs RT w pa chest xray DATE OF EXAM: 12/30/2023 11:29 AM INDICATION: Patient age:Male; 78 years old; Reason for study: fall; [facility]. COMPARISON: Chest radiograph 08/13/2023 TECHNIQUE: Frontal and oblique views of the right ribs with additional PA chest radiograph. FINDINGS: The ribs have a normal appearance. No evidence of fracture. Overall, the lungs are clear. The cardiac silhouette is normal in size. The remaining osseous structures are intact. Surgical cli ps in the right upper quadrant. IMPRESSION: No acute osseous pathology.
[2023-12-30] MEDS: LIDOCAINE 4% PATCH TOPICAL ONE (12:19)
[2023-12-30] MEDS: ACET/COD 300 MG/30 MG STARTER PACK 6 TAB BTL PO STA (12:19)
[2023-12-30 12:23] VITALS: BP 109/64; PULSE 66; RESP 18
== END 2023-12-30 12:23 | disposition home or self-care (01) ==
LOC: EC 10:56
DX: S09.90XA Unspecified injury of head, initial encounter (principal); S20.211A Contusion of right front wall of thorax, initial encounter; Z87.891 Personal history of nicotine dependence; W10.9XXA Fall (on) (from) unspecified stairs and steps, initial encounter; Y93.01 Activity, walking, marching and hiking
CPT/HCPCS: 70450; 99284

== ENCOUNTER → 2024-02-05 | Day surgery (SDC) | payer MEDICARE, OTHER ==
[~2024-02-05] MED LIST changes: +GLYCOPYRROLATE 0.2 MG/ML 2 ML VIAL ONE; +HYDROmorphone 0.5 MG/0.5 ML SYRINGE IVP PRN; -LIDOCAINE 1% (10MG/ML) FOR IV START INTRADERMA PRN; +LIDOCAINE 1% INJ 10MG/ML (20 ML MDV) ONE; +MIDAZOLAM 2 MG/2 ML VIAL ONE; +PROPOFOL 10 MG/ML 20 ML VIAL IV ONE; +Pre Op ABX Message 1 EACH MISC MISCELLANE ONE; +fentaNYL (PF) 50 MCG/ML 2 ML AMP ONE
[2024-02-05] MEDS: IV FLUID CONTINUATION 1,000 ML IV ONE (10:01)
[2024-02-05] MEDS: LACTATED RINGERS 1,000 ML IV SCH (10:14)
[2024-02-05] MEDS: ONDANSETRON 4 MG/2 ML VIAL IVP STA (10:18)
[2024-02-05] MEDS: DEXAMETHASONE SOD PHOSPHATE 4 MG/ML 1 ML VIAL IVP STA (10:19)
[2024-02-05] MEDS: SODIUM CHLORIDE 0.9% 100 ML with ceFAZolin 2,000 MG IV ONE (13:13)
[2024-02-05] MEDS: LIDOCAINE 1% INJ 10MG/ML (20 ML MDV) SQ ONE (13:17)
[2024-02-05] MEDS: HEPARIN SODIUM,PORCINE 100 UNIT/ML 5 ML VIAL IV ONE (13:17)
[2024-02-05 13:48] VITALS: TEMP 96.6
--- NOTE | 2024-02-05 14:56 | FL ---
Intraoperative/procedural fluoroscopic services were provided for Port-A-Cath placement. Total fluoro scopy time is 15.7 seconds with a total of 4 submitted images to PACS. Total DAP 0.9706 Gycm2. Brandi story see the operative note for further details. [facility], , 02/05/2024 1:42 PM
--- NOTE | 2024-02-05 14:56 | XR ---
EXAMINATION TYPE: XR chest 1V portable DATE OF EXAM: 02/05/2024 2:01 PM COMPARISON: 02/05/2024, 12/30/2023 TECHNIQUE: XR chest 1V portable Portable AP radiograph of the chest. CLINICAL INDICATION:Male, 78 years old with history of PTX s/p Mediport Insertion; FINDINGS: Patient is rotated which limits evaluation. Lungs/Pleura: There is no evidence of pleural effusion, focal consolidation, or pneumothorax. Chroni c senescent parenchymal change. Pulmonary vascularity: Unremarkable. Heart/mediastinum: Cardiomediastinal silhouette is enlarged. Musculoskeletal: No acute osseous pathology. Other findings: None Lines/Tubes: Mediport projecting over the right hemithorax with distal tip deep within the right atrium. IMPRESSION: Interval placement of Mediport projecting over the right hemithorax with distal tip deep within the r ight atrium. No pneumothorax. [facility], , 02/05/2024 2:11 PM
[2024-02-05 15:06] VITALS: BP 132/72; PULSE 65; RESP 14
--- NOTE | 2024-02-05 16:39 | P.OP ---
Date of Procedure: 02/05/24 Preoperative Diagnosis: Myelodysplastic Syndrome Postoperative Diagnosis: Myelodysplastic Syndrome Procedure(s) Performed: Mediport Insertion Anesthesia: MAC Surgeon: Ace Ventura Pathology: none sent Condition: stable Disposition: PACU Description of Procedure: The patient was taken to the operating room, placed supine, put under general endotracheal anesthesia. The patient's neck, chest, and shoulders were prepped and draped in usual sterile fashion. The right subclavian vein was cannulated. The wire was passed, which was in good position under fluoro, using Seldinger Technique. Near wire incision site made a pocket above the fascia and sutured in a size 6 [place] single-lumen MediPort into the pocket in 4 places using 2-0 Prolene. I then sized the catheter under fluoro and placed introducer and dilator over the wire, removed the wire and dilator, placed the catheter through the introducer and removed the introducer. The line tip was in good position under fluoro. It withdrew and flushed well. I then closed the incision using 3-0 Vicryl, and 4-0 Monocryl for the skin. Accessed the ports with a 1-inch 20-gauge Washburn needle, and it withdrew and flushed well with final heparin flush. Skin glue was applied. The patient tolerated the procedure well and was sent to the PACU in stable condition.
== END | disposition home or self-care (01) ==
LOC: OR 09:36
PROVIDERS: ATTEND Surgery
CPT/HCPCS: 71045; 77001

== ENCOUNTER → 2024-10-11 | Outpatient (CLI) | payer OTHER ==
[2024-10-11 10:58] LABS: African American GFR (CKD) 68 (>60 ml/min/1.73 sqM); Blood Urea Nitrogen 22 mg/dL (9-20); Non-African American GFR(CKD) 59 (>60 ml/min/1.73 sqM)
--- NOTE | 2024-10-12 10:16 | CT ---
EXAMINATION TYPE: CT lumbar spine wo/w con DATE OF EXAM: 10/11/2024 11:43 AM COMPARISON: None. CLINICAL INDICATION: Male, 79 years old with history of D46.9 MYELODYSPLASTIC SYNDROME, UNSPECIFIED, , pain TECHNIQUE: CT of the lumbar spine is performed on a spiral scan at 3 mm thick sections. Reconstructed images are performed in the coronal and sagittal planes. Contrast used: mL of , (none if empty) Oral contrast used: (none if empty) CT DLP: mGycm, Automated exposure control for dose reduction was used. FINDINGS: T12-L1: No focal disc herniation or significant disc bulge is evident. No spinal canal stenosis or neural foraminal stenosis is present. L1-L2: No focal disc herniation or significant disc bulge is evident. No spinal canal stenosis or n eural foraminal stenosis is present L2-L3: Broad-based disc bulge as well as anterior thecal sac flattening. Mild facet hypertrophy is pr esent. Mild to moderate bilateral foraminal narrowing is present. L3-L4: Broad-based disc bulge has anterior thecal sac impression. Facet hypertrophy is present. Spina l canal narrowing is present. Moderate bilateral foraminal narrowing is present. Some spinal canal st enosis may be present. L4-L5: Broad-based disc bulges mild to moderate anterior thecal sac flattening. Facet hypertrophy and ligamentum flavum laxity is present contributing to spinal canal stenosis. Moderate bilateral forami nal stenosis is present. L5-S1: Broad-based disc bulge is present with anterior thecal sac flattening. No AP spinal canal sten osis is present. Moderate bilateral foraminal narrowing is present. Vertebral alignment appears normal. Vertebral body heights are preserved. IMPRESSION: 1. Broad-based disc bulge with facet hypertrophy L3-4 and L4-5 has spinal canal stenosis. 2. Broad-based disc bulge with anterior thecal sac flattening L5-S1 without spinal canal stenosis. 3. Foraminal narrowing L2-3 through L5-S1 [facility], , 10/12/2024 10:14 AM
== END | disposition home or self-care (01) ==
LOC: RADCTMAIN 10:11
PROVIDERS: ATTEND Internal Medicine
DX: D46.9 Myelodysplastic syndrome, unspecified (principal); N42.9 Disorder of prostate, unspecified; J44.9 Chronic obstructive pulmonary disease, unspecified; N18.9 Chronic kidney disease, unspecified; M48.061 Spinal stenosis, lumbar region without neurogenic claudication; Z71.3 Dietary counseling and surveillance; M51.379 Other intervertebral disc degeneration, lumbosacral region without mention of lumbar back pain or lower extremity pain
CPT/HCPCS: 82565; 84520; 72133; 36415; Q9967